=== PATIENT | male | born 1955 | race Caucasian/White ===

== ENCOUNTER 2016-11-08 21:09 | Emergency (ER) | payer BC ==
[2016-11-08] MEDS ORDERED: HYDROcodone/ACETAMIN 5-325 MG* 1 TAB PO SCH (23:45)
[2016-11-09 00:19] VITALS: BP 156/89
--- NOTE | 2016-11-09 07:38 | RAD ---
INDICATION: Injury right humerus COMPARISON: None TECHNIQUE: AP, lateral, and oblique views were obtained. FINDINGS: The bony structures, joint spaces, and soft tissues are normal for age. IMPRESSION: NO ACUTE BONY FINDINGS
--- NOTE | 2016-11-09 07:39 | RAD ---
INDICATION: Left hand injury COMPARISON: None TECHNIQUE: AP, lateral, and oblique views were obtained. FINDINGS: There is no acute fracture. There is a healed fracture the proximal phalanx of the third digit. The articular relationships and soft tissues are normal for age. IMPRESSION: NO ACUTE FRACTURE.
--- NOTE | 2016-11-09 07:45 | RAD ---
INDICATION: Right shoulder injury COMPARISON: None TECHNIQUE: Routine frontal and Y views were obtained. FINDINGS: There are no acute bony findings. 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 The glenohumeral joint is intact. The soft tissues are normal. IMPRESSION: NO ACUTE FINDINGS.
--- NOTE | 2016-11-09 13:24 | ED ---
Ct Ceja Erika, scribed for Dimitri Fisher MD on 11/08/16 at 2234 . Adult Trauma - HPI Summary HPI Summary: Patient is a 61-year-old male presenting to the ED with a CC of constant, sudden -onset right shoulder pain s/p fall yesterday. 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 Patient reports pain to both of these locations. Shoulder pain is aggravated by moving the arm. - History of Current Complaint Chief Complaint: EDExtremityUpper Stated Complaint: FALL/ RT SHOULDER /SWOLLEN LT RING FINGER Time Seen by Provider: 11/08/16 22:23 Hx Obtained From: Patient Mechanism of Injury: Fall Onset/Duration: Started Days Ago, Traumatic, Still Present Current Severity: Moderate Pain Intensity: 8 Pain Scale Used: 0-10 Numeric Location: Extremities - R shoulder, L 4th finger Aggravating Factor(s): Movement - Allergy/Home Medications Allergies/Adverse Reactions: Allergies Allergy/AdvReac Type Severity Reaction Status Date / Time No Known Allergies Allergy Verified 11/08/16 21:19 PMH/Surg Hx/FS Hx/Imm Hx Endocrine/Hematology History: Reports: Hx Diabetes Cardiovascular History: Reports: Hx Hypertension Infectious Disease History: No Infectious Disease History: Denies: Traveled Outside the [place] in Last 30 Days - Family History Known Family History: Positive: Cardiac Disease, Hypertension, Respiratory Disease - COPD - Social History Occupation: Employed Full-time Lives: With Family Alcohol Use: None Hx Substance Use: No Substance Use Type: Reports: None Hx Tobacco Use: Yes - chewing tobacco Smoking Status (MU): Never Smoked Tobacco Do You Chew or Dip Tobacco: Yes Review of Systems Negative: Fever Positive: Arthralgia - R shoulder, L 4th finger All Other Systems Reviewed And Are Negative: Yes Physical Exam Triage Information Reviewed: Yes Vital Signs On Initial Exam: Initial Vitals Temp Pulse Resp BP Pulse Ox 98.2 F 87 15 140/77 97 11/08/16 21:13 11/08/16 21:13 11/08/16 21:13 11/08/16 21:13 11/08/16 21:13 Completion Of Physical Exam Limited Due To: Dementia Appearance: Positive: Well-Appearing, No Pain Distress Skin: Positive: Warm, Skin Color Reflects Adequate Perfusion, Dry Head/Face: Positive: Normal Head/Face Inspection Eyes: Positive: Normal ENT: Positive: Normal ENT inspection Neck: Positive: Supple, Nontender Respiratory/Lung Sounds: Positive: Clear to Auscultation, Breath Sounds Present Cardiovascular: Positive: RRR Abdomen Description: Positive: Nontender, Soft Bowel Sounds: Positive: Present Musculoskeletal: Positive: Other - Deformed right upper arm and shoulder. NV and motor intact Neurological: Positive: Normal Psychiatric: Positive: Affect/Mood Appropriate Diagnostics - Vital Signs Vital Signs Temp Pulse Resp BP Pulse Ox 11/08/16 21:15 98.2 F 87 15 140/77 97 11/08/16 21:13 98.2 F 87 15 140/77 97 - Laboratory Lab Statement: Any lab studies that have been ordered have been reviewed, and results considered in the medical decision making process. - Radiology L Hand XR Xray Interpretation: No Acute Changes Radiology Interpretation Completed By: ED Physician R Humerus XR Xray Interpretation: No Acute Changes Radiology Interpretation Completed By: ED Physician R Shoulder XR Radiology Interpretation Completed By: Radiologist - See [facility], pending at this time Adult Trauma Course/Dx - Course Course Of Treatment: Mr. Scott has a great deal of pain in his right shoulder to any ROM without an radiographic findings. I will place him in an immobilizer and encourage F/U. I warned him not to use the immobilizer more than a week without F/U. - Diagnoses Provider Diagnoses: Shoulder injury Discharge - Discharge Plan Condition: Stable Disposition: HOME Prescriptions: HYDROcodone/ACETAMIN 5-325 MG* [[place] 5-325 TAB*] 1 tab PO Q6H PRN #20 tab MDD 4 PRN Reason: Pain Patient Education Materials: Shoulder Sprain (ED) Referrals: Domitila Chavez MD [Primary Care Provider] - Additional Instructions: USE SHOULDER IMMOBILIZER. FOLLOW UP WITH YOUR PRIMARY CARE PHYSICIAN WITHIN A WEEK. DO NOT USE THE IMMOBILIZER FOR MORE THAN A WEEK. TAKE MEDICATION DIRECTED. The documentation as recorded by the Ct medrano Erika accurately reflects the service I personally performed and the decisions made by me, Dimitri Fisher MD.
== END 2016-11-09 00:18 | disposition home or self-care (01) ==
LOC: ED 21:09
DX: S49.91XA Unspecified injury of right shoulder and upper arm, initial encounter (principal); W19.XXXA Unspecified fall, initial encounter; Y93.9 Activity, unspecified; Y92.9 Unspecified place or not applicable
CPT/HCPCS: 99282

== ENCOUNTER 2017-03-21 19:21 | Emergency (ER) | payer BC ==
[2017-03-21 19:29] VITALS: BP 137/85
--- NOTE | 2017-03-21 20:48 | ED ---
Skin Complaint - HPI Summary HPI Summary: Patient presents to the with vesciular lesions under the right breast, right side body, right side of upper back which are following a linear pattern. He has had chicken pox as a child. He endorses pain over the lesions and has been using Vaseline for relief. He first noticed the lesions approximately 3-4 days ago. They have not gotten better or worse, but that pain has increased. He states he has been under increased stress lately and PMHx includes diabetes and HTN. Denies other complaints at this time. No lesions are noted in the ear or around the eyes. Denies numbness or tingling. - History of Current Complaint Chief Complaint: UCSkin Time Seen by Provider: 03/21/17 19:35 Stated Complaint: BLISTERS AND RASH ON TORSO Hx Obtained From: Patient Onset/Duration: Started Days Ago - 4 Timing: Constant Onset Severity: Moderate Current Severity: Moderate Pain Intensity: 0 Pain Scale Used: 0-10 Numeric Skin Location: Chest - and back Character: Swelling, Redness, Raised, Painful Aggravating Symptom(s): Nothing Alleviating Symptom(s): Nothing Associated Signs & Symptoms: Negative Related History: Possible Reaction to: Environmental Exposure - Allergy/Home Medications Allergies/Adverse Reactions: Allergies Allergy/AdvReac Type Severity Reaction Status Date / Time No Known Allergies Allergy Verified 03/21/17 19:30 Home Medications: Home Medications Atorvastatin* [Lipitor*] 40 mg PO 1700 03/21/17 [History Confirmed 03/21/17] Gabapentin CAP(*) [Neurontin 300 CAP(*)] 300 mg PO DAILY 03/21/17 [History Confirmed 03/21/17] Ibuprofen TAB* [Motrin TAB* 800 MG] 800 mg PO Q8H PRN 03/21/17 [History Confirmed 03/21/17] Losartan Potassium [Cozaar] 50 mg PO DAILY 03/21/17 [History Confirmed 03/21/17] Metformin HCl [Fortamet] 1,000 mg PO BID 03/21/17 [History Confirmed 03/21/17] Phentermine HCl 37.5 mg PO DAILY 03/21/17 [History Confirmed 03/21/17] Sitagliptin Phosphate [Januvia] 100 mg PO DAILY 03/21/17 [History Confirmed ] glipiZIDE TAB.XL* [Glucotrol XL*] 10 mg PO DAILY 03/21/17 [History Confirmed ] PMH/Surg Hx/FS Hx/Imm Hx Previously Healthy: No - see below Endocrine/Hematology History: Reports: Hx Diabetes Cardiovascular History: Reports: Hx Hypertension - Surgical History Surgery Procedure, Year, and Place: HERNIA REPAIR - Immunization History Hx Pertussis Vaccination: No Immunizations Up to Date: Unable to Obtain/Confirm Infectious Disease History: No Infectious Disease History: Denies: Traveled Outside the [place] in Last 30 Days - Family History Known Family History: Positive: Cardiac Disease, Hypertension, Respiratory Disease - COPD - Social History Occupation: Employed Full-time Lives: With Family Alcohol Use: None Hx Substance Use: No Substance Use Type: Reports: None Hx Tobacco Use: Yes - chewing tobacco Smoking Status (MU): Never Smoked Tobacco Type: Smokeless Tobacco Review of Systems Constitutional: Negative Eyes: Negative Cardiovascular: Negative Respiratory: Negative Positive: no symptoms reported, see HPI Positive: Arthralgia, Myalgia - pain in right side over lesions Positive: Other - vesicular lesions with minimal weeping Neurological: Negative Psychological: Normal All Other Systems Reviewed And Are Negative: Yes Physical Exam Triage Information Reviewed: Yes Vital Signs On Initial Exam: Initial Vitals Temp Pulse Resp BP Pulse Ox 98.9 F 87 18 137/85 100 03/21/17 19:26 03/21/17 19:26 03/21/17 19:26 03/21/17 19:26 03/21/17 19:26 Vital Signs Reviewed: Yes Appearance: Positive: Well-Appearing, Well-Nourished Skin: Positive: Warm, Weeping Skin/Lesions - vesicles Head/Face: Positive: Normal Head/Face Inspection, Temporal Artery Tenderness Eyes: Positive: Normal, EOMI, THAD, Conjunctiva Clear Neck: Positive: Supple, No Lymphadenopathy Respiratory/Lung Sounds: Positive: Clear to Auscultation, Breath Sounds Present Cardiovascular: Positive: Normal Musculoskeletal: Positive: Strength/ROM Intact Neurological: Positive: Other - nerve pain over vesicular lesions Psychiatric: Positive: Normal AVPU Assessment: Alert Diagnostics - Vital Signs Vital Signs Temp Pulse Resp BP Pulse Ox 03/21/17 19:26 98.9 F 87 18 137/85 100 - Laboratory Lab Statement: Any lab studies that have been ordered have been reviewed, and results considered in the medical decision making process. Course/Dx - Course Course Of Treatment: Patient evaluated for acute vesicular rash. Pain is located over the rash, but denies elsewhere. Chickenpox as a child and currently immunocompromised with increased stress levels and workload, diabetes and HTN. The lesions are vesicles which are weeping and not crusted over. They follow a dermatome pattern and are painful to touch. Valcyclovir 1g TID ordered for management. Patient currently taking Gabapentin for neuropathy. Will defer to PCP for further pain management or increase dose of gabapentin if nerve pain worsens. Patient is OK with discharge and return precautions and managment are given. - Differential Diagnoses - Skin Complaint Differential Diagnoses: Poison [place], Poison [place], Varicella Zoster - Diagnoses Provider Diagnoses: Varicella zoster Discharge - Discharge Plan Condition: Stable Disposition: HOME Prescriptions: ValACYclovir (*) [Valtrex 1 GM(*)] 1 gm PO TID #21 tab MDD 3 Patient Education Materials: Shingles (ED) Referrals: Domitila Chavez MD [Primary Care Provider] - Additional Instructions: PREVENTING TRANSMISSION TO OTHERS Patients with herpes zoster can transmit varicella zoster virus (VZV) to individuals who have not had varicella and have not received the varicella vaccine. VZV is transmitted from person to person by direct contact or by aerosolization of virus from skin lesions. In general, VZV is much less transmissible from a person presenting with herpes zoster than from a person presenting with varicella. Patients with localized zoster are not infectious before vesicles appear and are no longer infectious when the lesions have re-epithelized. For those with active lesions, there are no specific precautions within the community setting. However, patients should be counseled about the risk of viral transmission to others. In addition, until the rash has crusted, patients should be advised to: Keep the rash covered, if feasible, and to wash their hands often to prevent the spread of virus to others. Avoid contact with women who have never had chickenpox or the varicella vaccine, premature or low weight infants, and immunocompromised individuals Images - Images Full Body (No Head): 1 - vesicular lesions with minimal weeping 2 - vesicular lesions following dermatome pattern
== END 2017-03-21 20:00 | disposition home or self-care (01) ==
LOC: UCEAST 19:21
DX: B02.9 Zoster without complications (principal); E11.9 Type 2 diabetes mellitus without complications; Z79.84 Long term (current) use of oral hypoglycemic drugs; I10 Essential (primary) hypertension; F17.220 Nicotine dependence, chewing tobacco, uncomplicated
CPT/HCPCS: 99212; G0463

== ENCOUNTER 2017-12-18 08:46 | Emergency (ER) | payer BC ==
[2017-12-18 09:03] VITALS: BP 140/83
[2017-12-18] MEDS ORDERED: Fluorescein Sod TOPICAL 0.6* 0.6 MG TEST OPHTHALMIC ONE (09:27)
[2017-12-18] MEDS ORDERED: Tetracaine 0.5% OPTH.SOL 4 ML* 1 DROP BTL RIGHT EYE ONE (09:28)
--- NOTE | 2017-12-18 09:49 | UC ---
Yashira Ceja Emily, scribed for Jovan Mirza MD on 12/18/17 at 0936 . Eye Complaint HPI - HPI Summary HPI Summary: In Room: This patient is a 62 year old M presenting to convenient care with a chief complaint of foreign body in R eye that he noticed at 1100 yesterday. Pt reports that he snapped the axle on his trailer, and had to repair it. Pt reports he believes something may have gone into his eye at this point. The patient rates the pain 6/10 in severity. Symptoms aggravated by nothing. Symptoms alleviated by nothing. Patient denies cough, CP, and SOB. MD: Vital signs stable. Afebrile. 6/10 R eye discomfort. Visit history noncontributory. Pt has HTN, diabetes, tobacco use and has had shingles. Nurses: Pt complains of fb in right eye. Pt states unsure of what is in right eye. Pt states pain began 12/17/17. - History of Current Complaint Chief Complaint: UCEye Stated Complaint: EYE COMPLAINT Time Seen by Provider: 12/18/17 09:11 Hx Obtained From: Patient Onset/Duration: Sudden Onset, Lasting Hours, Still Present Timing: Constant Severity Initially: Moderate Severity Currently: Moderate Pain Intensity: 6 Pain Scale Used: 0-10 Numeric Character: Foreign Body Sensation Aggravating Factor(s): Nothing Alleviating Factor(s): Nothing - Allergies/Home Medications Allergies/Adverse Reactions: Allergies Allergy/AdvReac Type Severity Reaction Status Date / Time No Known Allergies Allergy Verified 12/18/17 08:51 Home Medications: Home Medications Tetrahydroz/Peg 400/Hyprom/Gly [Visine Max Redness Relief Drop] 2 drop RIGHT EYE Q1HR PRN 12/18/17 [History Confirmed 12/18/17] PMH/Surg Hx/FS Hx/Imm Hx Previously Healthy: No Endocrine History: Diabetes Cardiovascular History: Hypertension - Surgical History Surgical History: Yes Surgery Procedure, Year, and Place: HERNIA REPAIR. Right shoulder surgery - Family History Known Family History: Positive: Cardiac Disease, Hypertension, Respiratory Disease - COPD - Social History Occupation: Retired Lives: With Family Alcohol Use: None Substance Use Type: None Smoking Status (MU): Never Smoked Tobacco Type: Smokeless Tobacco Amount Used/How Often: 2 can weekly Review of Systems Eyes: Other - Positive foreign body sensation in R eye Respiratory: Other - Negative cough and SOB Cardiovascular: Other - Negative CP All Other Systems Reviewed And Are Negative: Yes Physical Exam - Summary Physical Exam Summary: Appearance: The patient is well-appearing, is in no pain distress, and is well- nourished. Eyes: PUPILS EQUAL AND REACTIVE TO LIGHT AND ACCOMODATION. NO VISIBLE INJURY. RIGHT SCLERA SLIGHTLY INJECTED. EXAMINATION OF THE EYE SHOWS A PINPOINT FOREIGN BODY THAT IS PROBABLY RUST AT 7 OCLOCK IN THE RIGHT EYE. ENT: The hearing is grossly normal, the pharynx is normal, and the TMs are normal. There is no muffled or hoarse voice. Neck: The neck is supple and there is no lymphadenopathy. Respiratory: The chest is nontender. The lungs are clear, there are normal breath sounds, and there is no respiratory distress. Cardiovascular: Heart is regular rate and rhythm. There is no murmur. Abdomen: The abdomen is soft and nontender. There is no organomegaly. Bowel sounds: present Musculoskeletal: Strength is intact. The patient moves all extremities. Neurological: The patient is alert. Psychological: The patient displays age appropriate behavior Skin: Negative for rashes. Triage Information Reviewed: Yes Vital Signs: Initial Vital Signs Temp 98.1 F 12/18/17 08:54 Pulse 81 12/18/17 08:54 Resp 16 12/18/17 08:54 BP 140/83 12/18/17 08:54 Pulse Ox 98 12/18/17 08:54 Vital Signs Reviewed: Yes Eye Complaint Course/Dx - Course Course Of Treatment: Examination of the eye shows a pinpoint foreign body that is probably rust at 7 oclock in the right eye. After fluorescein and tetracaine , attempt to remove it was made with a moist swab. Since this occurred yesterday , the foreign body appears to be embedded. He will be seen and evaluated by Dr. Talavera. Elevated BP but has current hypertension diagnosis and treatment. This should be rechecked a few times in the next month. Medications have been included in the original chart and reviewed. - Differential Dx/Diagnosis Provider Diagnoses: Corneal foreign body, 1 day old. Discharge - Sign-Out/Discharge Documenting (check all that apply): Discharge/Admit/Transfer - Discharge Plan Condition: Stable Disposition: HOME Patient Education Materials: Eye Foreign Body (ED) Referrals: Domitila Chavez MD [Primary Care Provider] - Additional Instructions: SEEK CARE AT THE EMERGENCY DEPARTMENT IF SYMPTOMS WORSEN OR IF NEW SYMPTOMS DEVELOP. FOLLOW UP WITH YOUR PRIMARY CARE PHYSICIAN. Your blood pressure reading today was 140/83, indicating HYPERTENSION. Follow- up with your primary care provider within 4 weeks for blood pressure readings and further evaluation. WE DISCUSSED: 1. You have a foreign body, probably rust, at 7 o'clock in the right eye. 2. Go to Dr. Talavera's office to have this removed. They are expecting you. - Billing Disposition and Condition Condition: STABLE Disposition: HOME The documentation as recorded by the Yashira medrano Emily accurately reflects the service I personally performed and the decisions made by me, Jovan iMrza MD.
== END 2017-12-18 09:50 | disposition home or self-care (01) ==
LOC: UCEAST 08:46
DX: T15.01XA Foreign body in cornea, right eye, initial encounter (principal); I10 Essential (primary) hypertension; E11.9 Type 2 diabetes mellitus without complications; B02.9 Zoster without complications; Z72.0 Tobacco use; X58.XXXA Exposure to other specified factors, initial encounter; Y93.89 Activity, other specified; Y92.9 Unspecified place or not applicable
CPT/HCPCS: 99211; A9270-GY; G0463

== ENCOUNTER 2018-10-22 18:27 | Observation (INO) | payer BC ==
[2018-10-22] MEDS ORDERED: NS 0.9% 1000 ML** 1,000 ML IV ONE (19:12)
--- NOTE | 2018-10-22 19:22 | ED ---
Neurological HPI - HPI Summary HPI Summary: Pt is a 63 y/o male who presents to the ED c/o numbness. At 18:00 the entire right side of his body became painful, fatigued, and numb. He then stumbled over into a wall due to ataxia. As per , his face became very reddened and he was not answering questions, rather just staring straight ahead. The entire episode lasted for 1 hour, and states pt was upset and crying. The pain is rated a 5/10 in severity. He also c/o paresthesia of his fingers and dehydration , but denies any slurred speech or near-syncope. Upon arrival to the ED he needed assistance getting out of his car. He is a diabetic and his last BG reading was 253. Pt denies any alcohol or drug use. PMHx HTN. - History of Current Complaint Chief Complaint: EDWeakness Stated Complaint: RIGHT SIDED PAIN PER NURSE Time Seen by Provider: 10/22/18 18:31 Hx Obtained From: Patient, Family/[employer] Membership Sales Agent - Onset/Duration: Sudden Onset, Started hours ago - 18:00 tonight, Resolved Timing: Intermittent Episodes Lasting: - 1 hour Neurological Deficit Location: RUE, RLE Pain Intensity: 5 Pain Scale Used: 0-10 Numeric Character: Numbness/Tingling, Lethargy Aggravating: Nothing Alleviating: Spontanious Resolution - Allergy/Home Medications Allergies/Adverse Reactions: Allergies Allergy/AdvReac Type Severity Reaction Status Date / Time No Known Allergies Allergy Verified 12/18/17 08:51 PMH/Surg Hx/FS Hx/Imm Hx Endocrine/Hematology History: Reports: Hx Diabetes Cardiovascular History: Reports: Hx Hypertension GI History: Reports: Other GI Disorders - hernia - Surgical History Surgery Procedure, Year, and Place: HERNIA REPAIR. Right shoulder surgery Infectious Disease History: No Infectious Disease History: Reports: Hx Shingles Denies: Traveled Outside the [place] in Last 30 Days - Family History Known Family History: Positive: Cardiac Disease, Hypertension, Respiratory Disease - COPD - Social History Alcohol Use: None Hx Substance Use: No Substance Use Type: Reports: None Hx Tobacco Use: Yes - chewing tobacco Smoking Status (MU): Current Some Day Smoker Type: Smokeless Tobacco Amount Used/How Often: 2 can weekly Review of Systems Positive: Fatigue, Other - dehydration Positive: Myalgia - right side of body Positive: Other - face reddened - resolved Neurological: Other - ataxia Positive: Paresthesia - fingers, Numbness - right side of body. Negative: Syncope - near, Slurred Speech All Other Systems Reviewed And Are Negative: Yes Physical Exam - Summary Physical Exam Summary: Appearance: well appearing, no pain distress Skin: warm, dry, reflects adequate perfusion Head/face: normal Eyes: EOMI, THAD ENT: mucous membranes moist Neck: supple, non-tender Respiratory: CTA, breath sounds present Cardiovascular: RRR, pulses symmetrical Abdomen: non-tender, soft Bowel Sounds: present Musculoskeletal: normal, strength/ROM intact Neuro: normal, sensory motor intact, A&Ox3, stands and walks normally Psych: flat affect Triage Information Reviewed: Yes Vital Signs On Initial Exam: Initial Vitals Temp Pulse Resp BP Pulse Ox 99.2 F 78 19 124/78 97 10/22/18 18:34 10/22/18 18:34 10/22/18 18:34 10/22/18 18:34 10/22/18 18:34 Vital Signs Reviewed: Yes - Stefanie Coma Scale Best Eye Response: 4 - Spontaneous Best Motor Response: 6 - Obeys Commands Best Verbal Response: 5 - Oriented Coma Scale Total: 15 Diagnostics - Vital Signs Vital Signs Temp Pulse Resp BP Pulse Ox 10/22/18 18:34 99.2 F 78 19 124/78 97 - Laboratory Lab Results: Lab Results 10/22/18 Range/Units 18:33 POC Glucose (mg/dL) 253 H (70-100) mg/dL Result Diagrams: 10/22/18 19:15 10/22/18 19:15 Lab Statement: Any lab studies that have been ordered have been reviewed, and results considered in the medical decision making process. - Radiology CXR Radiology Interpretation Completed By: ED Physician Summary of Radiographic Findings: No acute findings. Pending official radiology report. - CT Brain CT CT Interpretation Completed By: Radiologist Summary of CT Findings: 1. No acute intracranial hemorrhage or acute territorial type infarct. 2. There are scattered foci of hypodensity, likely representing small vessel ischemic disease in a patient this age. 3. Mild atrophy. 4. If further evaluation is clinically indicated, an MRI of the brain is. recommended. ED physician reviewed radiology report. - EKG 19:20 Cardiac Rate: NL - 80 bpm EKG Rhythm: Sinus Rhythm ST Segment: Normal Summary of EKG Findings: Nl axis, nl intervals NIH Scale - NIH Scale Level of Consciousness: Alert/Keenly Responsive Ask Patient the Month and His/Her Age: Both Correct Ask Pt to Open/Close Eyes and Switchboard Operator Receptionist/Release Non-Paretic Hand: Both Correctly Best Gaze (Only Horizontal Eye Movement): Normal Visual Field Testing: No Visual Loss Facial Paresis-Pt to Smile & Close Eyes or Grimace Symmetry: Normal/Symmetrical Motor Function - Right Arm: No Drift-Holds 10 Seconds Motor Function - Left Arm: No Drift-Holds 10 Seconds Motor Function - Right Leg: No Drift-Holds 10 Seconds Motor Function - Left Leg: No Drift-Holds 10 Seconds Limb Ataxia-Must be out of Proportion to Weakness Present: Absent Sensory (Use Pinprick to Test Arms/Legs/Trunk/Face): Normal Best Language (Describe Picture, Name Items): No Aphasia Dysarthria (Read Several Words): Normal Extinction and Inattention: No Abnormality Total Score: 0 Course/Dx - Course Course Of Treatment: Nurse's notes reviewed. Patient presents with abrupt onset of neurologic symptoms affecting the right side of his body with some ataxia. His NIH on exam is 0 however he required assistance in getting out of the car. His symptoms lasted maybe one hour. Teleneurology consultation was made with stroke neurologist at [facility]. He agreed at likely TIA and agreed that the patient was not a candidate for TPA. The patient was given IV fluids and full dose aspirin. He had no recurrence of his neurologic symptoms. He does have risk factors for cardiovascular disease including diabetes and hypertension. He will be admitted to the hospitalist service for further evaluation and rule out. - Differential Dx Differential Diagnoses Neuro: Positive: Benign Paroxysmal Positional Vertigo, Cerebrovascular Accident, Hypoglycemia, Hypothermia, Intracranial Bleed, Medication Reaction, Metabolic Abnormality, Transient Ischemic Attack, Vasovagal Reaction, Other - Mental health/conversion disorder - Diagnoses Provider Diagnoses: TIA (transient ischemic attack) - Physician Notifications Discussed Care Of Patient With: Francisco Camilo Time Discussed With Above Provider: 20:30 Instructed by Provider To: Other - Dr. Camilo from [facility] neurology is on for a teleconsult. He recommends admission to rule out TIA. At 21:05 Dr. Key accepts for admission. - Critical Care Time Critical Care Time: 30-74 min - Critical care time is exclusive of separately billable procedures Discharge - Sign-Out/Discharge Documenting (check all that apply): Patient Departure - Admit Patient Received Moderate/Deep Sedation with Procedure: No - Discharge Plan Condition: Stable Disposition: ADMITTED TO [facility] Referrals: Charlie Kwan MD [Primary Care Provider] - - Billing Disposition and Condition Condition: STABLE Disposition: Admitted to [facility] - Attestation Statements Document Initiated by Scribe: Yes Documenting Scribe: Lidia Palomares Provider For Whom Nithya is Documenting (Include Credential): Brennen Vick MD Scribe Attestation: Lidia Ceja, scribed for Brennen Vick MD on 10/22/18 at 2131. Scribe Documentation Reviewed: Yes Provider Attestation: The documentation as recorded by the Lidia medrano accurately reflects the service I personally performed and the decisions made by Brennen murguia MD Status of Scribe Document: Viewed
[2018-10-22 19:32] LABS: ABS Basophils 0.1 10^3/ul (0-0.2); ABS Eosinophils 0.3 10^3/ul (0-0.6); ABS Lymphocytes 2.7 10^3/ul (1.0-4.8); ABS Monocytes 1.3 10^3/ul (0-0.8); ABS Neutrophils 6.4 10^3/ul (1.5-7.7); ABS Nucleated RBC 0 10^3/ul; Hematocrit 45 % (36-46); Hemoglobin 15.1 g/dL (14.0-18.0); Lymphocyte % 25.1 %; Mean Corpuscular HGB Conc 34 g/dL (31-36); Mean Corpuscular Hemoglobin 29 pg (27-31); Mean Corpuscular Volume 87 fL (80-94); Mean Platelet Volume 9.1 fL (7.4-10.4); Nucleated Red Blood Cells % 0.1; Platelet Count 213 10^3/uL (150-450); Red Blood Count 5.16 10^6 /uL (4.18-5.48); Red Cell Distribution Width 14 % (10.5-15); White Blood Count 10.8 10^3/uL (3.5-10.8)
[2018-10-22 19:41] LABS: INR 0.84 (0.77-1.02)
[2018-10-22 19:42] LABS: Activated Partial Thrombo Time 31.4 seconds (26.0-36.3)
[2018-10-22 19:43] LABS: Albumin 4.2 g/dL (3.2-5.2); Albumin/Globulin Ratio 1.3 (1-3); BUN/Creatinine Ratio 17.3 (8-20); Calcium 9.3 mg/dL (8.6-10.3); EGFR African American 52.7 (>60); EGFR Non-African American 43.5 (>60); Globulin 3.3 g/dL (2-4); HDL Cholesterol 31.7 mg/dL; Total Bilirubin 0.4 mg/dL (0.2-1.0); Total Protein 7.5 g/dL (6.4-8.9)
[2018-10-22 19:45] LABS: Troponin I 0.01 ng/mL (<0.04)
[2018-10-22 20:04] LABS: Potassium 4.2 mmol/L (3.5-5.0)
[2018-10-22] MEDS ORDERED: Aspirin EC TAB* 81 MG TAB.EC ONE (20:45)
[2018-10-22] MEDS ORDERED: Aspirin 81 mg CHEW TAB* 81 MG TAB.CHEW PO ONE (20:45)
[2018-10-22 21:41] LABS: Urine Appearance Clear; Urine Bilirubin Negative (Negative); Urine Blood Negative (Negative); Urine Color Yellow; Urine Glucose 3+(>=500 mg/dL) (Negative); Urine Ketones Negative (Negative); Urine Nitrite Negative (Negative); Urine Protein Negative (Negative); Urine Specific Gravity 1.025 (1.010-1.030); Urine Urobilinogen Negative (Negative)
[2018-10-22] MEDS ORDERED: Dextrose 50% Syringe 50 ML* 25 GM/50 ML SYRINGE IV PUSH PRN (22:34)
[2018-10-22] MEDS ORDERED: Enoxaparin(*) 40 MG/0.4 ML SYR SUBCUT SCH (23:00)
[2018-10-23] MEDS: Insulin LISPRO* 1 UNITS UNIT SUBCUT SCH ×3 (00:02→12:23)
--- NOTE | 2018-10-23 00:26 | ADMNOTE ---
Subjective Date of Service: 10/22/18 Interval History: HISTORY AND PHYSICAL PCP: Aquiles CC: RT side numbness HPI: Patient is 63 year old with diabetes, hypertension, who was driving car yesterday afternoon, had sudden onset of numbness and weakness in whole RT side of body. He was able to stop car. was with him, convinced him to come to ER by car. At ER, he noted ataxia and weakness in RT leg and arm, needed assistance to get out of car to stretcher. In ER neurologic exam normalized. He had tele-stroke consult and aspirin daily was advised. Denies headache. Denies similar episodes in past. Family History: Findings - father of alcoholism, mother of DE, Brother alive with CAD Social History: Findings - , 2 children, raising grandson, retired, no smoking, no alcohol, no drug use Past Medical History: Findings - Type 2 diabetes, hypertension; PSH: RT shoulder repair, umbilical hernia repair Review of Systems - Measurements Intake and Output: Intake and Output Last 24 Hours 10/20/18 10/21/18 10/22/18 10/23/18 06:59 06:59 06:59 06:59 Weight 132.449 kg - Review of Systems Constitutional Symptoms: Negative: Weight Loss, Fatigue, Fever Dermatology: Positive: Normal HEENT: Positive: Normal Eyes: Positive: Normal Negative: Change in Vision, Double Vision Thyroid: Positive: Normal Pulmonary: Positive: Normal Cardiology: Positive: Normal Negative: Chest Pain, Shortness of Breath Gastroenterology: Positive: Normal Negative: Nausea, Vomiting, Diarrhea Genital - Urinary: Positive: Normal Endocrinology: Positive: Diabetes Mellitus Neurology: Positive: Change in Balancing, Change in Walking, Numbness\ Paresthesiae, Unexplained Weakness Negative: Headache, Migraines, Change in Speech, Hx of Stroke\TIA, Hx of Seizures Psychiatry: Positive: Normal Objective Active Medications: Aspirin (Aspirin 81 Mg Chew Tab*) 81 mg PO DAILY WITH MEAL [facility] Atorvastatin Calcium (Lipitor*) 40 mg PO 1700 [facility] Glipizide (Glucotrol Xl*) 10 mg PO DAILY [facility] Losartan Potassium (Cozaar Tab*) 50 mg PO DAILY [facility] Metformin HCl (Glucophage*) 1,000 mg PO BID [facility] Nfm* (Empagliflozin ([Jardiance] 10 Mg)) 10 mg PO DAILY WITH MEAL [facility] Sitagliptin Phosphate (Januvia (Nf)) 100 mg PO DAILY [facility]; Protocol Vital Signs - 8 hr 10/22/18 10/22/18 10/22/18 18:34 18:37 18:38 Temperature 37.3 C Pulse Rate 78 79 81 Respiratory 19 24 28 Rate Blood Pressure 124/78 129/72 (mmHg) O2 Sat by Pulse 97 96 96 Oximetry 10/22/18 10/22/18 10/22/18 22:09 22:39 23:00 Temperature Pulse Rate 72 72 68 Respiratory 25 21 27 Rate Blood Pressure 127/74 120/72 (mmHg) O2 Sat by Pulse 94 96 95 Oximetry 10/22/18 10/22/18 23:10 23:21 Temperature 37.2 C Pulse Rate 75 76 Respiratory 16 16 Rate Blood Pressure 119/71 119/71 (mmHg) O2 Sat by Pulse 95 98 Oximetry Oxygen Devices in Use Now: None Appearance: alert, no distress, obese Eyes: No Scleral Icterus Ears/Nose/Mouth/Throat: NL Teeth, Lips, Gums, Clear Oropharnyx Neck: NL Appearance and Movements; NL JVP Respiratory: Symmetrical Chest Expansion and Respiratory Effort, Clear to Auscultation Cardiovascular: NL Sounds; No Murmurs; No JVD, RRR Abdominal: NL Sounds; No Tenderness; No Distention, No Hepatosplenomegaly Lymphatic: No Cervical Adenopathy Extremities: No Edema Skin: No Rash or Ulcers Neurological: Alert and Oriented x 3, NL Sensation, NL Muscle Strength and Tone Lines/Tubes/Other Access: Clean, Dry and Intact Peripheral IV Nutrition: Taking PO's Result Diagrams: 10/22/18 19:15 10/22/18 19:15 Additional Lab and Data: Laboratory Tests 10/22/18 10/22/18 10/22/18 18:33 19:15 19:15 INR (Anticoag Therapy) 0.84 APTT 31.4 Glucose 241 H POC Glucose (mg/dL) 253 H Lactic Acid Troponin I 0.01 Cholesterol 118 LDL Cholesterol 28 HDL Cholesterol 31.7 Ur Specific [place] Urine Glucose 10/22/18 10/22/18 19:15 21:18 INR (Anticoag Therapy) APTT Glucose POC Glucose (mg/dL) Lactic Acid 1.9 Troponin I Cholesterol LDL Cholesterol HDL Cholesterol Ur Specific [place] 1.025 Urine Glucose 3+(>=500 mg/dl) A Diagnostic Imaging: Head CT: no infarct CXR: negative EKG Data: NSR, normal axis , Qs in III, aVF, possible old IMI Assess/Plan/Problems-Billing Assessment: 63 year old man admitted w/ episode RT arm numbness, ataxia, possible TIA - Patient Problems (1) TIA (transient ischemic attack) Current Visit: Yes Status: Acute Priority: High Code(s): G45.9 - TRANSIENT CEREBRAL ISCHEMIC ATTACK, UNSPECIFIED SNOMED Code(s): 743813162 Comment: -Differential would include cardioembolic TIA, carotid embolism source, seizure, or somatization. -Will be admitted to observation, follow rhythm on telemetry -Will need MRI to assess for small stroke -Will have carotid doppler and echocardiogram to assess for embolic source. -Started on aspirin daily. (2) Type 2 diabetes mellitus Current Visit: Yes Status: Acute Priority: Medium Comment: -Will continue outpatient diabetes regimen and check finger stick glucose at AC and HS. -Supplemental sliding scale humalog will be available. (3) DVT prophylaxis Current Visit: Yes Status: Acute Priority: Low Code(s): [id number] - SNOMED Code(s): 354307878 Comment: -Moderate risk -SC lovenox Status and Disposition: observation
[2018-10-23 07:03] LABS: Troponin I 0.01 ng/mL (<0.04)
[2018-10-23 07:04] LABS: BUN/Creatinine Ratio 17.3 (8-20); Calcium 9.3 mg/dL (8.6-10.3); EGFR African American 62.9 (>60); EGFR Non-African American 51.9 (>60); Potassium 4.1 mmol/L (3.5-5.0)
[2018-10-23] MEDS ORDERED: Aspirin 81 mg CHEW TAB* 81 MG TAB.CHEW PO SCH (08:30)
[2018-10-23] MEDS ORDERED: [UNRECOGNIZED DRUG - OTHER] PO SCH (08:30)
[2018-10-23] MEDS ORDERED: metFORMIN* 1,000 MG TAB PO SCH (09:00)
[2018-10-23] MEDS ORDERED: glipiZIDE TAB.XL* 5 MG PO SCH (09:00)
[2018-10-23] MEDS ORDERED: Losartan TAB* 25 MG PO SCH (09:00)
[2018-10-23] MEDS ORDERED: CMCS:SitaGLIPtin (NF) 100 MG TAB PO SCH (09:00)
[2018-10-23] MEDS ORDERED: Clopidogrel TAB* 300 MG PO ONE (10:06)
--- NOTE | 2018-10-23 11:51 | ECHO ---
Patient: AZALIA SHIN [facility] Rec#: [id number] : 1955 Date: 10/23/2018 Age: 63y Height: 180 cm / 70.9 in Weight: 135 kg / 297.5 lbs Sex: M BSA: 2.49 Room#: [facility] Admit Date#: 10/22/2018 Type: Inpatient Referring: Vernon Key MD Reading: Timothy Monroy MD Operations Lead: Wendy HitchcockBABS CC: Charlie Kwan MD Transthoracic Echocardiogram Indication: TIA BP: 125/72 HR: 69 Rhythm: NSR Findings History: Obesity, HTN, DM. Technical Comments: The study quality is fair. Completed at 1140. Left Ventricle: The left ventricular chamber size is normal. Mild concentric left ventricular hypertrophy is observed. Global left ventricular wall motion and contractility are within normal limits. There is normal left ventricular systolic function. The estimated ejection fraction is 55-60%. Abnormal left ventricular diastolic function is observed. There is an E to A reversal in the mitral valve flow pattern suggestive of diastolic dysfunction. Left Atrium: The left atrial chamber size is normal. Right Ventricle: Moderator Band present. The right ventricle is mildly dilated. The right ventricle wall thickness is mildly increased. The right ventricular global systolic function is normal. Right Atrium: The right atrium is mild to moderately dilated. Interatrial septum appears intact without evidence of shunting. The bubble study is negative. A patent foramen ovale is not demonstrated with color Doppler and agitated contrast. Aortic Valve: The aortic valve is trileaflet. The aortic valve leaflets are mildly thickened. There is a trace of aortic regurgitation. There is no evidence of aortic stenosis. Mitral Valve: The mitral valve leaflets are mildly thickened. There is trace to mild mitral regurgitation. There is no evidence of mitral stenosis. Tricuspid Valve: The tricuspid valve leaflets are normal. There is trace to mild tricuspid regurgitation. The right ventricular systolic pressure is estimated at 27 mmHg. There is no tricuspid stenosis. Pulmonic Valve: The pulmonic valve appears normal. There is a trace pulmonic regurgitation. There is no pulmonic stenosis. Pericardium: There is no significant pericardial effusion. A pericardial fat pad is visualized. Aorta: There is mild dilatation of the ascending aorta. There is no dilatation of the aortic arch. The aortic root is normal in size. Pulmonary Artery: The main pulmonary artery appears normal. Venous: The inferior vena cava is dilated. There is a greater than 50% respiratory change in the inferior vena cava dimension. Contrast: Normal saline was used as contrast for the bubble study. Images on 78 and 79. Intravenous contrast was used to help determine presence of intracardiac shunting. Summary: There was not any prior study for comparison. Conclusions Global left ventricular wall motion and contractility are within normal limits. There is normal left ventricular systolic function. The estimated ejection fraction is 55-60%. Abnormal left ventricular diastolic function is observed. The right ventricular global systolic function is normal. A patent foramen ovale is not demonstrated with color Doppler and agitated contrast. There is a trace of aortic regurgitation. There is trace to mild mitral regurgitation. There is trace to mild tricuspid regurgitation. The right ventricular systolic pressure is estimated at 27 mmHg. There is no significant pericardial effusion. Measurements Name Value Normal Range RVIDd (AP) 2D 3.96 cm (0.9 - 2.6) RVDdMajor (2D) 4.8 cm (2.2 - 4.4) RVAW (2D) 0.6 cm (0.2 - 0.5) RAd ISD 4CH 5.6 cm (3.4 - 4.9) RA (A4C)W 4.9 cm (2.9 - 4.6) IVSd (2D) 1.2 cm (0.6 - 1) LVPWd (2D) 1.1 cm (0.6 - 1) LVIDd (2D) 4.1 cm (3.6 - 5.4) LVIDs (2D) 2.7 cm - LV FS (2D) 33 % (25 - 45) Aortic Annulus 2.3 cm (1.4 - 2.6) Ao root diameter (2D) 3.3 cm (2.1 - 3.5) Ascending Ao 3.5 cm (2.1 - 3.4) Aortic arch 3.1 cm (1.8 - 3.4) LA dimension (AP) 2D 3.8 cm (2.3 - 3.8) LAd ISD 4CH 5.3 cm (2.9 - 5.3) LA ISD 4CH W 4.5 cm (2.5 - 4.5) Name Value Normal Range LA ESV BP (A/L) index 26 ml/m2 - Name Value Normal Range MV E-wave Vmax 0.6 m/sec - MV deceleration time 222 msec - MV A-wave Vmax 0.8 m/sec - MV E:A ratio 0.7 ratio - LV septal e' Vmax 0.07 m/sec - LV lateral e' Vmax 0.1 m/sec - LV E:e' septal ratio 8.6 ratio - LV E:e' lateral ratio 6 ratio - Name Value Normal Range AV Vmax 1.3 m/sec - AV VTI 25 cm - AV peak gradient 7 mmHg - AV mean gradient 3 mmHg - LVOT Vmax 1 m/sec - LVOT VTI 25 cm - LVOT peak gradient 7 mmHg - LVOT mean gradient 3 mmHg - MOHSEN Vmax 1 m/sec - Name Value Normal Range TR Vmax 2.2 m/sec - TR peak gradient 19 mmHg - RAP 8 mmHg - RVSP 27 mmHg - IVC diameter 2.4 cm - Name Value Normal Range PV Vmax 0.9 m/sec - PV peak gradient 3 mmHg -
--- NOTE | 2018-10-23 11:58 | CONS ---
CC: Charlie Kwan MD CONSULTATION REPORT: DATE OF CONSULT: 10/23/18 LOCATION: Currently in room 446, bed 2. PRIMARY CARE PHYSICIAN: Charlie Kwan MD. REASON FOR CONSULT: Acute onset right-sided symptoms, numbness and tingling with risk factors. HISTORY OF PRESENT ILLNESS: Mr. Scott is a 63-year-old gentleman with a history of hypertension, diabetes, possibly hypercholesterolemia, who was in his usual state of health when yesterday at around 5 p.[address]. while driving his grandson home, he developed acute onset of right arm and leg numbness and tingling. He denied any specific weakness on that side. His states that his face turned very red, that he he did not speak for about 10 minutes and then he started to cry afterwards. She denied any rere facial weakness. The symptoms lasted for about an hour. He did come to the ER and in the ER, it was reported that he also noted some weakness and ataxia, although he denied that today in the arm and leg. Apparently during his ER visit, his exam returned to normal. Telestroke consult was done and daily aspirin was advised. He reports being on aspirin prior to this hospitalization. He denies any focal left-sided symptoms. He denies any vision symptoms including double vision or vision loss. Denies any recent illnesses, fevers, chills, palpitations or chest pain, shortness of breath. He has had no falls or head trauma. He states that he feels back to his normal self. He has never had any of these symptoms prior. He states that he is compliant with his medications at home. He notes no problem swallowing. He did note some problems with speech for a few minutes, states that it got better. He states that he had a headache afterwards, generalized in nature, dull and aching, moderate but he has no history of migraine headaches in the past or similar focal neurologic findings of presentation. This morning, he is walking around, feeling better, states that he is back to his baseline. PAST MEDICAL HISTORY: As noted above. PAST SURGICAL HISTORY: Includes surgical repair of his right shoulder and umbilical hernia repair in the distant past. MEDICATIONS AT HOME: Include: 1. Losartan. 2. Hydrochlorothiazide. 3. Lipitor 40. 4. Gabapentin. 5. Ibuprofen 800 mg q.8 hours. 6. Glipizide. 7. Januvia. 8. Phentermine 37.5. 9. Metformin. 10. Aspirin 81 mg a day. 11. Jardiance. ALLERGIES: No known drug allergies. FAMILY HISTORY: Father with alcoholism, mother with the heart attack, brother with coronary artery disease. SOCIAL HISTORY: He is . His is at the bedside. He has 2 children. His grandson is living with him. He is a maguire. He denies any significant tobacco, alcohol, or drug use. REVIEW OF SYSTEMS: Review of systems in 14-organ systems as noted above, otherwise negative. PHYSICAL EXAM: Vital Signs: Temperature of 97.8, blood pressure 111/63 to 125/72 to 119/71. Pulse has been in the 60s to 70s. Respiratory rate 16 to 20s. O2 saturation 95 % to 98% on room air. In general, he is a well-nourished, well- developed, obese gentleman, in no acute distress. He is sitting on the side of his hospital bed. He gets up, walks around. He is very pleasant. is at the bedside. HEENT: He is normocephalic, atraumatic. Sclerae anicteric. Mucous membranes are moist. Oropharynx is clear. Nares are patent. Neck is supple. No thyromegaly. No carotid bruits. No meningismus. Chest: Clear to auscultation bilaterally. Cardiovascular is regular rate and rhythm without murmurs. Abdomen is nontender , nondistended. Extremities: No clubbing, cyanosis, or edema. Skin is warm and dry. He has tattoos scattered. On neurologic exam, he is awake, alert, and oriented x3. His speech is fluent. There is no dysarthria. Repetition is intact. Recall of recent and remote events is intact. Vocabulary is intact. His mood is dysthymic. Affect is mood congruent. Cranial Nerves II through XII: Pupils are equally round and reactive to light and accommodation. Extraocular muscles are intact in all quadrants. Visual pacheco are full throughout. Face is symmetric. Facial sensation is intact to light touch. Oropharynx raises symmetrically. Hearing is intact. Tongue is midline. Sternocleidomastoid and trapezius are 5/5. Motor Exam: He is 5/5 throughout. Good tone and bulk. No drift in the upper and lower extremities. [id number] rapid alternating movements were intact without tremors. No dysdiadochokinesia. Sensation is intact to light touch and pinprick throughout. DTRs are 2+ and symmetric in the upper and lower extremities with equivocal Babinski. Gait is normal base, normal arm swing, steady. Romberg negative. DIAGNOSTIC STUDIES/LAB DATA: Lab work includes CBC with diff is essentially normal. INR of 0.84. PTT of 31.4. Chemistry with a BUN of 28. Creatinine of 1.62 on admission, 1.39 this morning. Glucose 241 to 170 to 123 to 164. Lactic acid 1.9. Triglycerides of 294, cholesterol of 118, LDL 28, HDL 31.7. Troponin negative. Urine 3+ glucose. Studies: He had a brain CT which showed some white matter disease. No acute issues. No infarcts appreciated. Mild atrophy. He had a chest x-ray which showed no evidence of active disease. Telemetry negative. Carotid ultrasound, MRA and MRI of the head are pending. Echocardiogram is pending. ASSESSMENT AND PLAN: Mr. Scott is a 63-year-old gentleman with multiple stroke risk factors including diabetes; hypertension; hypercholesterolemia, on medications, who presented to the hospital with acute onset of right arm and leg numbness and tingling, possibly some weakness. Although he downplays that, his states that he had no facial droop, but his face turned very red. He did not speak for about 10 minutes and then started talking again. He has never had any similar issues in the past. He is on daily aspirin at home. A emy hogan was called as he arrived within an hour and based on his presentation at the time, they recommended aspirin. No need for intervention. Overnight, he has returned to baseline. He has not had any new issues. He feels okay, somewhat concerned about his presentation. PLAN: 1. Will order MRI and MRA of the head, to look for any acute stroke, to look for any evidence of stenosis or other vascular issues. 2. Carotid ultrasound of the neck to look for any stenosis, thrombus or dissection. 3. Echocardiogram. 4. Continue tele to look for any evidence of atrial fibrillation. 5. I will continue aspirin. I have added Plavix loading dose, 300mg and would start 75 mg a day and I would treat with dual antiplatelet therapy for 30 days and then stop the aspirin and continue the Plavix as he may have aspirin resistance. I would consider this is a high-risk TIA given his multiple risk factors. I think dual antiplatelet is appropriate. 6. Continue his statin. His LDL cholesterol is very good. 7. Continue tight blood pressure control. 8. Continue tight glucose control at this point. He is back to his baseline with no focal deficits. No need for any physical therapy at this point. If his studies come back negative today, I think it is okay for him to go home. I told him to return to the ER immediately should he have any new focal symptoms or concerns. I plan to see him back in clinic. You can make a followup with me in 2 to 3 months. I will make further recommendations as necessary. Thank you for the opportunity to participate in the care of this very interesting patient. [id number]/[facility] #: [id number] GROGE
[2018-10-23 12:37] VITALS: BP 116/70
--- NOTE | 2018-10-23 16:09 | DS ---
CC: Dr. Charlie Kwan* DATE OF ADMISSION: 10/22/2018. DATE OF DISCHARGE: 10/23/2018. PROVIDER: Jorge Luis Leija NP. ATTENDING PHYSICIAN: Dr. bAdi* (report dictated by Jorge Luis Leija NP). PRIMARY CARE PHYSICIAN: Dr. Charlie Kwan. CONSULTING NEUROLOGIST: Dr. Ramiro Reyes. DISCHARGE DIAGNOSIS: Right-sided numbness and tingling, suspect possible TIA. SECONDARY DIAGNOSES: 1. Type 2 diabetes. 2. Hypertension. 3. Hyperlipidemia. HISTORY OF PRESENT ILLNESS: The patient presented to the emergency department on 10/23/2018 after he reported he was in his usual state of health when yesterday around 5:00 p.m. he developed an acute onset of right arm and leg numbness, tingling, and possible weakness. He denied any specific weakness of the right side and did not have any facial weakness. Per the 's report, his face did turn red and he did not speak for about ten minutes and then started to cry afterwards. Symptoms were reported to last about an hour. In the emergency department, it was reported that there was noted some weakness and ataxia. Today he denies any weakness, numbness, or tingling in his arms or legs and reports that he feels back to his baseline. Please see Dr. Reyes's full dictated note for full details. Prior to hospitalization, the patient was on aspirin. Per Neurologist, he was loaded with Plavix and the plan will be to continue the patient on dual antiplatelet therapy with aspirin and Plavix for 30 days. The patient is to stop the aspirin and continue the Plavix only as he may have aspirin resistance. Continue statin therapy. IMAGING STUDIES: 1. The patient did undergo a head and neck MRA which showed, impression: "No aneurysm, vascular malformation, occlusion, or stenosis of the visualized intracranial circulation." 2. A brain MRI, impression: "(1) There are multiple foci of elevated T2/FLAIR signal within the periventricular and subcortical white matter. While these findings are nonspecific, they can be seen in association with migraine headache , as the sequela of previous infection or inflammation, and chronic small vessel ischemia. Demyelinating disease is also within the differential, but is considered less likely in the absence of the appropriate clinical presentation. (2) No restricted diffusion to suggest acute infarct." 3. Transthoracic echocardiogram, conclusion: "Global left ventricular wall motion and contractility are within normal limits. There is normal left ventricular systolic function. The estimated ejection fraction is 55 to 60 percent. Abnormal left ventricular diastolic function is observed. The right ventricular global systolic function is normal. A patent foramen ovale is not demonstrated with color Doppler and agitated contrast. There is a trace of aortic regurgitation. There is trace to mild mitral regurgitation. There is trace to mild tricuspid regurgitation. The right ventricular systolic pressure is estimated at 27 mmHg. There is no significant pericardial effusion." LABORATORY DATA: Labs are noted to be within normal limits, except I do note that his creatinine on admission was 1.62, today is down to 1.39. Possible chronic kidney disease. Do not have any recent prior labs. Last creatinine we have recorded is 1.08 in 2013. The patient's triglycerides are 294, cholesterol 118, LDL 28, HDL 31.7. The patient's blood sugars were monitored throughout the hospitalization and are within the range of 160 to 180. He is to resume his home meds on discharge. Recommend follow-up BMP in a week to monitor renal function if this is above the patient's baseline. REVIEW OF SYMPTOMS: A 14 point review of systems was performed. All the pertinent positives and negatives are mentioned in the history of present illness, otherwise are negative. The patient offers no complaints today and reports he feels at his baseline. PHYSICAL EXAMINATION: General: Morbidly obese male, sitting up in a chair, alert and oriented times three, in no acute distress. Pleasant and appropriate. Vital Signs: Temperature 97.8, heart rate 74, respirations 20, O2 sat 99 percent on room air, blood pressure 116/70. HEENT: Head is normocephalic , atraumatic. Pupils equal and reactive to light. Oropharynx is clear. Moist mucous membranes. Cardiac: Si1, S2, regular rate and rhythm. No murmur or gallop appreciated. No lower extremity edema noted. Lungs: Clear to auscultation bilaterally. Good aeration throughout. Abdomen: Very obese, nondistended, soft, nontender. Difficult to auscultate bowel sounds. Extremities: Moves all extremities equally. Strength is 4/4 throughout. Neuro : Alert and oriented times three, no focal deficits noted. DISCHARGE MEDICATIONS: 1. Losartan/HCTZ 50/12.5 mg one tab p.o. daily. 2. Lipitor 40 mg p.o. daily. 3. Gabapentin 300 mg p.o. t.i.d. 4. Glipizide 10 mg p.o. daily. 5. Januvia 100 mg p.o. daily. 6. Phentermine HCL 37.5 mg p.o. daily. 7. Metformin 1,000 mg p.o. b.i.d. 8. Aspirin 81 mg p.o. daily (patient is instructed to take this for one month per Neurology along with Plavix and should be discontinued after one month, continuing Plavix only). 9. Jardiance 10 mg p.o. daily with meals. New medication: Plavix 75 mg p.o. daily. DISCHARGE PLAN: 1. The patient is stable for discharge to home. 2. Follow-up with Neurology, Dr. Reyes, in one month. 3. Follow-up with Dr. Kwan within five to seven days. 4. Follow-up BMP to monitor renal function if this is above the patient's baseline. The patient was instructed to return to the emergency department if he has any worsening or concerning symptoms. TIME SPENT: Approximately 60 minutes were spent on this discharge. JORGE LUIS LEIJA, VERN [id number]/[facility] #: [id number] GORGE
[2018-10-23] MEDS ORDERED: Atorvastatin* 40 MG TAB PO SCH (17:00)
[2018-10-24] MEDS ORDERED: Clopidogrel TAB* 75 MG PO SCH (09:00)
== END 2018-10-23 15:23 | disposition home or self-care (01) ==
LOC: ED 18:27 → MEDTELE 22:31
PROVIDERS: ADMIT Internal Medicine; ATTEND Internal Medicine
DX: R20.0 Anesthesia of skin (principal); E11.9 Type 2 diabetes mellitus without complications; I10 Essential (primary) hypertension; E78.5 Hyperlipidemia, unspecified; Z79.82 Long term (current) use of aspirin; F17.210 Nicotine dependence, cigarettes, uncomplicated; E86.0 Dehydration
CPT/HCPCS: 36415; 70450; 70544; 70551; 71045; 80048; 80053; 80061; 81003; 83605; 84484; 85025; 85610; 85730; 93005; 93306; 93880; 96372; 96374; 99285; A9270-GY; G0378; J1650

== ENCOUNTER 2019-10-11 19:21 | Emergency (ER) | payer BC ==
--- OUTSIDE RECORDS SUMMARY | 2019-10-11 19:28 | XMS REPORT | Summary of Care ---
:1955 Author Organization [facility] Address [address] [place] [address] Care Team Providers Name Role Phone Charlie Kwan Primary Care Provider Reason for Visit Reason Comments Weight Check Patient has lost 4lbs since 05/28/2019. Encounter Details Date Type Department Care Team Description 09/10/2019 Office Visit [facility] [place] Charlie Kaur, BMI 40.0-44.9, adult ([facility]) (Primary Dx); Medicine Diabetes mellitus without complication ([facility]); [address] [place] [address] [place] [address] [phone] Allergies Active Allergy Reactions Severity Noted Date Comments Lisinopril Other 12/09/2013 cough documented as of this encounter (statuses as of 09/10/2019) Medications Medication Sig Dispensed Refills Start Date End Date Status Blood Glucose by Does not apply route. 1. Brand: Any 1 Kit 0 02/02/2011 Active Monitoring Suppl 2. Dx:250.02 (BLOOD GLUCOSE 3. non-Insulin dependent METER) Does not 4. Test Blood Glucose 2 time(s) A DAY apply KitIndications: Diabetes mellitus (HCC) Blood Glucose 1. Brand: per meter type 100 Strip 5 02/02/2011 Active Monitoring Suppl 2. Dx:250.02 (BLOOD GLUCOSE 3. non-Insulin dependent TEST STRIPS 4. Test Blood Glucose 2 time(s) A DAY STR)Indications: Diabetes mellitus (HCC) Lancets Does not by Does not apply route. 1. Brand: per meter type 100 Each 5 02/02/2011 Active apply 2. Dx:250.02 MiscIndications: 3. non-Insulin dependent Diabetes mellitus 4. Test Blood Glucose 2 time(s) A DAY ([facility]) metFORMIN HCL 1000 take 1 tablet 180 Tab 3 10/09/2018 Active MG Oral Tab by mouth twice a day with meals Empagliflozin Take 1 Tab by 90 Tab 5 02/05/2019 Active (JARDIANCE) 25 MG mouth DAILY. Oral Tab JANUVIA 100 MG TAKE 1 TABLET 90 Tab 3 02/11/2019 Active Oral BY MOUTH ONCE TabIndications: DAILY Diabetes mellitus without complication ([facility]) clopidogrel Take 1 Tab by 90 Tab 3 02/11/2019 Active (PLAVIX) 75 MG mouth DAILY. Oral Tab Losartan-Hydrochlo Take 1 Tab by 90 Tab 3 02/11/2019 Active rothiazide 50-12.5 mouth DAILY. MG Oral TabIndications: Benign hypertension gabapentin Take 1 Cap by 180 Cap 3 04/02/2019 Active (NEURONTIN) 300 MG mouth THREE Oral TIMES DAILY. CapIndications: Herpes zoster atorvastatin TAKE 1 TABLET 90 Tab 3 06/17/2019 Active (LIPITOR) 40 MG BY MOUTH ONCE Oral Tab DAILY Phentermine HCl TAKE 1 CAPSULE 30 Cap 3 06/25/2019 Active 37.5 MG Oral BY MOUTH CapIndications: DAILY. MAX BMI 40.0-44.9, DAILY AMOUNT: adult (HCC) 37.5 MG ibuprofen (MOTRIN) TAKE 1 TABLET 90 Tab 3 07/10/2019 Active 800 MG Oral Tab BY MOUTH EVERY 8 HOURS NEEDED FOR HEADACHE amoxicillin Take 1 Tab by 14 Tab 0 07/18/2019 Discontinued (AMOXIL, POLYMOX, mouth TWICE 0 (Error) TRIMOX) 875 MG DAILY. Oral Tab oseltamivir Take 1 Cap by 10 Cap 0 09/02/2019 Discontinued (TAMIFLU) 75 MG mouth DAILY. 0 (Provider Oral Cap Discontinued) documented as of this encounter (statuses as of 09/10/2019) Active Problems Problem Noted Date History of TIA (transient ischemic attack) 05/28/2019 Essential hypertension 02/15/2018 Cortical cataract of both eyes 03/01/2017 Complete tear of right rotator cuff 01/13/2017 Rotator cuff tear arthropathy of right shoulder 11/25/2016 BMI 40.0-44.9, adult 09/20/2012 Overview: This patient's BMI has been calculated and is above average, and BMI management plan is completed. General patient education discussion including: weight loss link to reduction of risk factors for car diac and other diseases Referral to intelligence agent. Controlled type 2 diabetes mellitus without complication, without 10/10/2011 long-term current use of insulin Overview: Eye exam done 05/13, no problems noted Hearing loss, sensory 08/14/2009 documented as of this encounter (statuses as of 09/10/2019) Resolved Problems Problem Noted Date Resolved Date Infected wound 01/30/2019 02/05/2019 Right shoulder pain 11/17/2016 10/30/2018 Tear of right rotator cuff 11/17/2016 02/05/2019 Neck abscess 01/15/2015 10/30/2018 Urine test positive for microalbuminuria 12/09/2013 10/30/2018 Overview: On losartan. Intolerant to lisinopril. Other specified hypothyroidism 08/09/2004 09/10/2019 Depression 08/09/2004 10/30/2018 documented as of this encounter (statuses as of 09/10/2019) Immunizations Name Administration Dates Next Due Influenza (IM) Preservative Free 05/28/2019, 04/24/2018, 05/05/2016, 05/26/2011 Influenza (IM) W/Pres 07/17/2014 PNEUMOCOCCAL POLYSACCHARIDE VACCINE 04/24/2018 Pneumococcal Conjugate(13 Valent) 05/28/2019 TDAP Vaccine 07/17/2014 documented as of this encounter Social History Tobacco Use Types Packs/Day Years Used Date Never Smoker Smokeless Tobacco: Current User Chew Alcohol Use Drinks/Week oz/Week Comments No 0 Standard drinks or equivalent 0.0 Sex Assigned at Date Recorded Not on file Job Start Date Occupation Industry Not on file Not on file Not on file Travel History Travel Start Travel End No recent travel history available. documented as of this encounter Last Filed Vital Signs Vital Sign Reading Time Taken Comments Blood Pressure 124/64 09/10/2019 2:06 PM EST Pulse 100 09/10/2019 2:06 PM EST Temperature - - Respiratory Rate - - Oxygen Saturation 94% 09/10/2019 2:06 PM EST Inhaled Oxygen Concentration - - Weight 123.4 kg (272 lb) 09/10/2019 2:06 PM EST Height 180.3 cm (5' 11") 09/10/2019 2:06 PM EST Body Mass Index 37.94 09/10/2019 2:06 PM EST documented in this encounter Patient Instructions Patient InstructionsCharlie Kwan MD - 09/10/2019 2:00 PM ESTFinger stick once daily premeal <120 or after meal <180 Diabetes mellitus blood test today and in 3 months Please check your blood pressure at home, mall, pharmacy, or grocery store three times per week. Write these numbers down and bring them into your next doctor visit. The goal blood pressure for you is less than : 140/90 Bring in your blood pressure machine Continue phentermine Think about dietitian here for diabetes mellitus Next goal weight 12 weeks 10 lb weight loss documented in this encounter Progress Notes Charlie Kwan MD - 09/10/2019 2:00 PM EST PATIENT: Shant SCOTT Sr. : 1955 DATE OF SERVICE: 09/10/2019 CHIEF COMPLAINT: Chief Complaint Patient presents with Weight Check Patient has lost 4lbs since 05/28/2019. Subjective HISTORY OF PRESENT ILLNESS: Shant SCOTT Sr. is a 63-y.o. male. HPI Follow up to obesity hypertension diabetes mellitus Lab Results Component Value Date GLYCO 8.2 (H) 05/28/2019 GLYCOHEMOGLO 7.6 (A) 10/26/2018 he is not checking finger stick at all and struggles with sugar snacks and beverages He continues to lose weight and feels the phentermine has helped with portion and calorie control hegets no regular exercise Wt Readings from Last 3 Encounters: 09/10/19 272 lb (123.4 kg) 05/28/19 276 lb (125.2 kg) 02/06/19 293 lb 6.4 oz (133.1 kg) no cardiovascular or gastro-intestinal symptoms Patient Active Problem List Diagnosis Hearing loss, sensory Controlled type 2 diabetes mellitus without complication, without long- term current use of insulin ([facility]) BMI 40.0-44.9, adult (HCC) Rotator cuff tear arthropathy of right shoulder Complete tear of right rotator cuff Cortical cataract of both eyes Essential hypertension History of TIA (transient ischemic attack) Family History Problem Relation Age of Onset Diabetes Paternal Aunt Glaucoma No family history Blindness No family history Macular Degeneration No family history Other Eye Problems No family history Current Outpatient Medications Medication Sig atorvastatin (LIPITOR) 40 MG Oral Tab TAKE 1 TABLET BY MOUTH ONCE DAILY Blood Glucose Monitoring Suppl (BLOOD GLUCOSE METER) Does not apply Kit by Does not apply route. 1. Brand: Any 2. Dx:250.02 3. non-Insulin dependent 4. Test Blood Glucose 2 time(s) A DAY Blood Glucose Monitoring Suppl (BLOOD GLUCOSE TEST STRIPS STRP) 1. Brand : per meter type 2. Dx:250.02 3. non-Insulin dependent 4. Test Blood Glucose 2 time(s) A DAY clopidogrel (PLAVIX) 75 MG Oral Tab Take 1 Tab by mouth DAILY. Empagliflozin (JARDIANCE) 25 MG Oral Tab Take 1 Tab by mouth DAILY. gabapentin (NEURONTIN) 300 MG Oral Cap Take 1 Cap by mouth THREE TIMES DAILY. ibuprofen (MOTRIN) 800 MG Oral Tab TAKE 1 TABLET BY MOUTH EVERY 8 HOURS NEEDED FOR HEADACHE JANUVIA 100 MG Oral Tab TAKE 1 TABLET BY MOUTH ONCE DAILY Lancets Does not apply Misc by Does not apply route. 1. Brand: per meter type 2. Dx:250.02 3. non-Insulin dependent 4. Test Blood Glucose 2 time(s) A DAY Losartan-Hydrochlorothiazide 50-12.5 MG Oral Tab Take 1 Tab by mouth DAILY. metFORMIN HCL 1000 MG Oral Tab take 1 tablet by mouth twice a day with meals Phentermine HCl 37.5 MG Oral Cap TAKE 1 CAPSULE BY MOUTH DAILY. MAX DAILY AMOUNT: 37.5 MG No current facility-administered medications for this visit. Allergies Allergen Reactions Lisinopril Other cough Social History Socioeconomic History Marital status: Spouse name: Not on file Number of children: Not on file Years of education: Not on file Highest education level: Not on file Occupational History Not on file Social Needs Financial resource strain: Not on file Food insecurity Worry: Not on file Inability: Not on file Transportation needs Medical: Not on file Non-medical: Not on file Tobacco Use Smoking status: Never Smoker Smokeless tobacco: Current User Types: Chew Substance and Sexual Activity Alcohol use: No Alcohol/week: 0.0 standard drinks Drug use: No Sexual activity: Not on file Lifestyle Physical activity Days per week: Not on file Minutes per session: Not on file Stress: Not on file Relationships Social connections Talks on phone: Not on file Gets together: Not on file Attends mormon service: Not on file Active member of club or organization: Not on file Attends meetings of clubs or organizations: Not on file Relationship status: Not on file Intimate partner violence Fear of current or ex partner: Not on file Emotionally abused: Not on file Physically abused: Not on file Forced sexual activity: Not on file Other Topics Concern Not on file Social History Narrative Not on file ROS no eye symptoms he feels gabapentin helps the neuropathy Heat feeling in his feet Objective PHYSICAL EXAM: VITALS: BP 124/64 | Pulse 100 | Ht 5' 11" (1.803 m) | Wt 272 lb (123.4 kg) | SpO2 94% | BMI 37.94 kg/m Body mass index is 37.94 kg/m. Physical Exam Left foot diabetic exam: Visual exam. Foot appears normal without wounds or signs of infection: yes Sensory exam. Patient can feel the monofilament on the foot: yes Pulse exam. A pulse is palpable at either the foot or ankle: yes Right foot diabetic exam: Visual exam. Foot appears normal without wounds or signs of infection: yes Sensory exam. Patient can feel the monofilament on the foot: yes Pulse exam. A pulse is palpable at either the foot or ankle: yes I spent 25 minutes with the patient, greater than half of this in direct face to face counseling addressing the current condition and the plan of care. ASSESSMENT / IMPRESSION: ICD-9-CM ICD-10-CM 1. BMI 40.0-44.9, adult (HCC) continue phentermine and add in daily 30 minutes walk reduce high carbohydrate snacks V85.41 Z68.41 2. Diabetes mellitus without complication (HCC) not at goal continue current medications hemoglobin A1C today and 3 month 250.00 E11.9 COMPREHENSIVE METABOLIC PANEL GLYCOHEMOGLOBIN A1C 3. Essential hypertension at goal monitor at home and continue current medications 401.9 I10 LIPID PROFILE Patient Instructions Finger stick once daily premeal <120 or after meal <180 Diabetes mellitus blood test today and in 3 months Please check your blood pressure at home, mall, pharmacy, or grocery store three times per week. Write these numbers down and bring them into your next doctor visit. The goal blood pressure for you is less than : 140/90 Bring in your blood pressure machine Continue phentermine Think about dietitian here for diabetes mellitus Next goal weight 12 weeks 10 lb weight loss Charlie Kwan MD 09/10/2019 15:22 documented in this encounter Plan of Treatment Date Type Specialty Care Team Description 12/11/2019 Lab Internal Medicine 12/18/2019 Office Visit Internal Medicine Charlie Kwan MD [address] [place] [address] [phone] 03/12/2020 Ocular Visit Optometry Ashkan [place], OD [address] [facility] [place] [address] [phone] Name Type Priority Associated Diagnoses Date/Time COMPREHENSIVE METABOLIC Lab Routine Diabetes mellitus 09/10/2019 3:17 PM PANEL without complication EST (HCC) GLYCOHEMOGLOBIN A1C Lab Routine Diabetes mellitus 09/10/2019 3:17 PM without complication EST (HCC) LIPID PROFILE Lab Routine Essential hypertension 09/10/2019 3:17 PM EST Health Maintenance Due Date Last Done Comments ZOSTER IMMUNIZATION SERIES 10/20/2007 (1 of 2) FOOT EXAM 02/15/2019 02/15/2018, 02/15/2018, 11/15/2016 HEMOGLOBIN A1C 08/28/2019 05/28/2019, 01/29/2019, 10/26/2018, Additional history exists DEPRESSION SCREENING 01/03/2020 01/02/2019, 01/02/2019 LIPID DISORDER SCREENING 08/30/2020 08/30/2019, 06/17/2019, 05/13/2019, Additional history exists Diabetic Eye Exam 03/07/2021 03/07/2019, 03/07/2019, 03/07/2019, Additional history exists Colonoscopy 04/20/2023 04/20/2018, 04/20/2018, 04/25/2014, Additional history exists DTaP/Tdap/Td Vaccines (2 - 07/17/2024 07/17/2014 Tdap) INFLUENZA VACCINE Completed 05/28/2019, 04/24/2018, 05/05/2016, Additional history exists PNEUMOCOCCAL 0-64 YRS Completed 05/28/2019, 04/24/2018 HEPATITIS A IMMUNIZATION Aged Out No longer eligible SERIES based on patient's age to complete this topic HPV IMMUNIZATION SERIES Aged Out No longer eligible based on patient's age to complete this topic MENINGOCOCCAL VACCINE IMM Aged Out No longer eligible based on patient's age to complete this topic documented as of this encounter Goals Goal Patient Goal Associated Recent Patient-Stated? Author Type Problems Progress Blood Pressure Blood Pressure 124/64 No Mariama, < 140/90 (09/10/2019 ANITA Ramesh 2:06 PM EST) Note: This is an individualized treatment (blood pressure) goal for Shant SCOTT Sr.: Displayed above (on the left) is your goal for blood pressure control. Your most recent blood pressure is also shown above, on the right. You should try to achieve blood pressures that are lower than your goal listed above (on the left). Depression screen Depression 0 (01/02/2019 11:24 AM No Domitila Leslie FNP (PHQ-9) total score < 5 EDT) Note: This is an individualized treatment (depression) goal for Shant Scott Sr.: Displayed above is your goal for a depression screening (PHQ-9) score that would indicate good control of your depression. 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 The patient's last A1C was Lab Results Lab Results Value Date/Time GLYCO 10.1 01/09/2014 0732 GLYCO 9.5 09/06/2013 1000 The patient is:above goal . As your provider, it is important that I advise you regarding: your current medications and help you with any challenges you may face taking your medications as directed (ex. instructions, cost, side effects, and interactions). lifestyle changes:exercise, diet, glucose monitoring and medication compliance your clinical goals and how you can achieve success:weight reduction, exercise plan, diet management and glucose monitoring medication management: will check labs today and adjust if needed. patient education/self-management tools provided: No To successfully manage my Diabetes I will: have lab work every six months if my previous A1c was 7 or less. If my results were greater than 7, I will have lab work every three months. My goal is to control my diabetes by keeping A1c below 7.0 take medications every day as prescribed by my healthcare provider and if unable to take them I will discuss with my provider. exercise/walk 30 minutes 5 day(s) per week. If I experience chest pain, chest tightness, or shortness of breath, I will seek medical attention immediately. check feet daily. If sores or irritation are noticed, will seek medical attention. follow a low carbohydrate and low fat diet. My goal is an LDL (bad cholesterol) number less than 100 when I have my routine lab work. check blood sugar as instructed and will call my healthcare provider if the results are consistently below 70 or above 300. I will monitor for symptoms of low blood sugar (feeling faint, dizzy, lig htheaded, jittery, sweaty, or hungry), if symptoms are noticed, I will eat or drink something (glucose tabs, orange juice, candy) to help raise sugar. record my blood sugar results (including dextrose sticks). [employer] is safe and secure way for you to do this in your medical record online. try to obtain an ideal body weight. My recent weight was Weight: 329 lb ( 149.233 kg). My weight loss goal for my next office visit is lose 5#. to prevent kidney problems common to people with diabetes I will complete a yearly Microalbumin to check for protein in urine. I will talk with my healthcare provider about medications to prevent diabetic renal disease. to prevent diabetic retinopathy I will see an eye doctor yearly. A yearly dilated eye exam helps prevent blindness. if currently smoking, will discuss how to quit smoking with my healthcare provider and work towards quitting. Education Resources: [place] Diabetic Association Site http://diabetes.org Academy of Nutrition & Dietetics Site http://eatright.org National Smoking Cessation Site http://smokefree.gov Glycohemoglobin A1c < 7.0 Diabetes 8.2 (05/28/2019 3:52 No Domitila Leslie FNP PM EDT) Note: This is an individualized treatment (diabetes control, HgbA1C) goal for Shant L Swansbrough Sr.: Displayed above is your progress towards your HgbA1C goal. Your goal is shown above (on the left); your most recent HgbA1C is shown on the right. Note that lower numbers are better. Weight loss vs. 18 mo Lifestyle 30 (09/10/2019 2:06 PM No Domitila Leslie FNP max (lbs) >= 10 EST) Note: This is an individualized lifestyle goal for Shant Scott Sr.: Your body mass index (BMI) is more than 30. You should lose weight. A reasonable starting goal is to lose 10 pounds. Displayed above is how many pounds you have lost thus far towards your 10 pound weight loss goal. Keep a regular sleep schedule Lifestyle No Domitila Leslie FNP Note: This is an individualized lifestyle goal for Shant Scott Sr.: Please maintain a regular sleep schedule. This may help with some symptoms of depression. Keep immunizations current Lifestyle No Domitila Leslie FNP Note: This is an individualized lifestyle goal for Shant Scott Sr.: Please be sure to keep up-to-date on recommended immunizations. For example, this would include a yearly influenza vaccine. Immunization status can be seen by looking at the Health Maintenance sections of your [facility], Plan of Care, and any After Visit Summaries. Take all prescribed medications as Self-management No Domitila Leslie FNP directed Note: This is an individualized self-management goal for Shant Scott Sr.: Please take all prescribed medications as directed. 1. Do not skip doses. If you cannot afford your medications, talk with your doctor. 2. Use a pill reminder system such as a pill box if needed. Your pharmacist can help you with this. 3. Contact your Pharmacy 5 days before your medication runs out. If you cannot take your medications for any reasons, talk with your doctor. 4. Please bring all of your medication bottles and inhalers (or a list of all your medications/inhalers) with you to every visit. Potential barriers to meeting all of your care plan goals will continue to be addressed on an ongoing basis. documented as of this encounter Implants Implanted Type Area Hand Iii Cutter Device Shelf Model / Identifier Expiration Serial / Date Lot Ventralex Patch -Med 6.4x6.4 - [id number] [employer] [id number] / Implanted: Qty: 1 on 08/16/2010 at [facility] / [id number] Biocomposite Corkscrew/Fiber - [id number] Right: [employer] 03/30/2019 [id number] / Implanted: Qty: 1 on 08/15/2017 by Juan Carlos Mulligan MD at [facility] Shoulder / [id number] Swivel Lock [place] 4.75 - [id number] Right: [employer]REX 03/30/2019 AR- [id number] / Implanted: Qty: 2 on 08/15/2017 by Juan Carlos Mulligan MD at [facility] Shoulder / [id number] documented as of this encounter Results Not on filedocumented in this encounter Visit Diagnoses Diagnosis Diabetes mellitus without complication (HCC) Type II or unspecified type diabetes mellitus without mention of complication, not stated as uncontrolled Essential hypertension Unspecified essential hypertension BMI 40.0-44.9, adult (HCC) Body Mass Index 40.0-44.9, adult documented in this encounter Insurance Payer Benefit Plan / Subscriber ID Effective Dates Phone Address Type Group [employer] xxxxxxxxxxxx 2017-Present [employer] Guarantor Name Account Type Relation to Date of Phone Billing Patient Address Jerome SCOTT Personal/Family 1955 [id number] [phone] [place], [place] (Work) [phone] documented as of this encounter
--- OUTSIDE RECORDS SUMMARY | 2019-10-11 19:28 | XMS REPORT | Summary of Care ---
:1955 Author Organization [facility] Address [address] [facility] [place] [address] Care Team Providers Name Role Phone Charlie Kwan Primary Care Provider Reason for Visit Reason Comments Diabetes Follow up. Patient states his blood sugars are all over the place. Last A1C was 8.7 on 09/10/2019. Encounter Details Date Type Department Care Team Description 10/09/2019 Office Visit [facility] Charlie Kwan, Essential hypertension (Primary Dx); Medicine BMI 40.0-44.9, adult ([facility]); [address] Uncontrolled type 2 diabetes mellitus with peripheral neuropathy ([facility]) [place] [address] [place] [address] [phone] Allergies Active Allergy Reactions Severity Noted Date Comments Lisinopril Other 12/09/2013 cough documented as of this encounter (statuses as of 10/09/2019) Medications Medication Sig Dispensed Refills Start Date End Date Status Blood Glucose by Does not apply route. 1. Brand: Any 1 Kit 0 02/02/2011 Active Monitoring Suppl 2. Dx:250.02 (BLOOD GLUCOSE 3. non-Insulin dependent METER) Does not 4. Test Blood Glucose 2 time(s) A DAY apply KitIndications: Diabetes mellitus ([facility]) Blood Glucose 1. Brand: per meter type 100 Strip 5 02/02/2011 Active Monitoring Suppl 2. Dx:250.02 (BLOOD GLUCOSE 3. non-Insulin dependent TEST STRIPS 4. Test Blood Glucose 2 time(s) A DAY STRP)Indications: Diabetes mellitus (HCC) Lancets Does not by Does not apply route. 1. Brand: per meter type 100 Each 5 02/02/2011 Active apply 2. Dx:250.02 MiscIndications: 3. non-Insulin dependent Diabetes mellitus 4. Test Blood Glucose 2 time(s) A DAY (HCC) Empagliflozin Take 1 Tab by 90 Tab 5 02/05/2019 Active (JARDIANCE) 25 MG mouth DAILY. Oral Tab JANUVIA 100 MG TAKE 1 TABLET 90 Tab 3 02/11/2019 Active Oral BY MOUTH ONCE TabIndications: DAILY Diabetes mellitus without complication (HCC) clopidogrel Take 1 Tab by 90 Tab 3 02/11/2019 Active (PLAVIX) 75 MG mouth DAILY. Oral Tab Losartan-Hydrochlo Take 1 Tab by 90 Tab 3 02/11/2019 Active rothiazide 50-12.5 mouth DAILY. MG Oral TabIndications: Benign hypertension atorvastatin TAKE 1 TABLET 90 Tab 3 06/17/2019 Active (LIPITOR) 40 MG BY MOUTH ONCE Oral Tab DAILY ibuprofen (MOTRIN) TAKE 1 TABLET 90 Tab 3 07/10/2019 Active 800 MG Oral Tab BY MOUTH EVERY 8 HOURS NEEDED FOR HEADACHE metFORMIN HCL 1000 TAKE 1 TABLET 180 Tab 3 10/07/2019 Active MG Oral Tab BY MOUTH TWICE A DAY WITH MEALS Phentermine HCl Take 1 Cap by 30 Cap 5 10/09/2019 Active 37.5 MG Oral mouth EVERY CapIndications: MORNING. Max BMI 40.0-44.9, Daily Amount: adult (HCC) 37.5 mg. gabapentin Take 1 Cap by 180 Cap 3 10/09/2019 Active (NEURONTIN) 300 MG mouth TWICE Oral Cap DAILY. gabapentin Take 1 Cap by 180 Cap 3 04/02/2019 Discontinued (NEURONTIN) 300 MG mouth THREE 0 (Dose Oral TIMES DAILY. Adjustment) CapIndications: Herpes zoster Phentermine HCl TAKE 1 CAPSULE 30 Cap 3 06/25/2019 Discontinued 37.5 MG Oral BY MOUTH 0 (Reorder) CapIndications: DAILY. MAX BMI 40.0-44.9, DAILY AMOUNT: adult (HCC) 37.5 MG documented as of this encounter (statuses as of 10/09/2019) Active Problems Problem Noted Date BMI 40.0-44.9, adult 10/09/2019 History of TIA (transient ischemic attack) 05/28/2019 Essential hypertension 02/15/2018 Cortical cataract of both eyes 03/01/2017 Complete tear of right rotator cuff 01/13/2017 Rotator cuff tear arthropathy of right shoulder 11/25/2016 BMI 37.0-37.9, adult 09/20/2012 Overview: This patient's BMI has been calculated and is above average, and BMI management plan is completed. General patient education discussion including: weight loss link to reduction of risk factors for car diac and other diseases Referral to professor of legal studies. Uncontrolled type 2 diabetes mellitus with peripheral neuropathy 10/10/2011 Overview: Eye exam done 05/13, no problems noted Hearing loss, sensory 08/14/2009 documented as of this encounter (statuses as of 10/09/2019) Resolved Problems Problem Noted Date Resolved Date Infected wound 01/30/2019 02/05/2019 Right shoulder pain 11/17/2016 10/30/2018 Tear of right rotator cuff 11/17/2016 02/05/2019 Neck abscess 01/15/2015 10/30/2018 Urine test positive for microalbuminuria 12/09/2013 10/30/2018 Overview: On losartan. Intolerant to lisinopril. Other specified hypothyroidism 08/09/2004 09/10/2019 Depression 08/09/2004 10/30/2018 documented as of this encounter (statuses as of 10/09/2019) Immunizations Name Administration Dates Next Due Influenza [...] Assigned at Date Recorded Not on file documented as of this encounter Last Filed Vital Signs Vital Sign Reading Time Taken Comments Blood Pressure 118/70 10/09/2019 9:13 AM EDT Pulse 74 10/09/2019 9:13 AM EDT Temperature - - Respiratory Rate - - Oxygen Saturation - - Inhaled Oxygen Concentration - - Weight 122.5 kg (270 lb) 10/09/2019 9:13 AM EDT Height 180.3 cm (5' 11") 10/09/2019 9:13 AM EDT Body Mass Index 37.66 10/09/2019 9:13 AM EDT documented in this encounter Patient Instructions Patient InstructionsCharlie Kwan MD - 10/09/2019 9:00 AM EDTcontinue current medications Look at your feet every day You have lost 30 lb Congratulations! Next goal weight is 260 lb Diabetes mellitus is not under great control but it will get better with weight Diabetes mellitus blood 3 month and then follow up me 3.5 month documented in this encounter Progress Notes Charlie Kwan MD - 10/09/2019 9:00 AM EDT PATIENT: Shant SCOTT Sr. : 1955 DATE OF SERVICE: 10/09/2019 CHIEF COMPLAINT: Chief Complaint Patient presents with ? Diabetes Follow up. Patient states his blood sugars are all over the place. Last A1C was 8.7 on 09/10/2019. Subjective HISTORY OF PRESENT ILLNESS: Shant SCOTT Sr. is a 63-y.o. male. 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 Hearing loss, sensory ? Uncontrolled type 2 diabetes mellitus with peripheral neuropathy (HCC) ? BMI 37.0-37.9, adult ? Rotator cuff tear arthropathy of right shoulder ? Complete tear of right rotator cuff ? Cortical cataract of both eyes ? Essential hypertension ? History of TIA (transient ischemic attack) ? BMI 40.0-44.9, adult ([facility]) Family History Problem Relation Age of Onset ? Diabetes Paternal Aunt ? Glaucoma No family history ? Blindness No family history ? Macular Degeneration No family history ? Other Eye Problems No family history Current Outpatient Medications Medication Sig ? atorvastatin (LIPITOR) 40 MG Oral Tab TAKE 1 TABLET BY MOUTH ONCE DAILY ? Blood Glucose Monitoring Suppl (BLOOD GLUCOSE METER) Does not apply Kit by Does not apply route. 1. Brand: Any 2. Dx:250.02 3. non-Insulin dependent 4. Test Blood Glucose 2 time(s) A DAY ? Blood Glucose Monitoring Suppl (BLOOD GLUCOSE TEST STRIPS STRP) 1. Brand : per meter type 2. Dx:250.02 3. non-Insulin dependent 4. Test Blood Glucose 2 time(s) A DAY ? clopidogrel (PLAVIX) 75 MG Oral Tab Take 1 Tab by mouth DAILY. ? Empagliflozin (JARDIANCE) 25 MG Oral Tab Take 1 Tab by mouth DAILY. ? gabapentin (NEURONTIN) 300 MG Oral Cap Take 1 Cap by mouth TWICE DAILY. ? ibuprofen (MOTRIN) 800 MG Oral Tab TAKE 1 TABLET BY MOUTH EVERY 8 HOURS NEEDED FOR HEADACHE ? JANUVIA 100 MG Oral Tab TAKE 1 TABLET BY MOUTH ONCE DAILY ? Lancets Does not apply Misc by Does not apply route. 1. Brand: per meter type 2. Dx:250.02 3. non-Insulin dependent 4. Test Blood Glucose 2 time(s) A DAY ? Losartan-Hydrochlorothiazide 50-12.5 MG Oral Tab Take 1 Tab by mouth DAILY. ? metFORMIN HCL 1000 MG Oral Tab TAKE 1 TABLET BY MOUTH TWICE A DAY WITH MEALS ? Phentermine HCl 37.5 MG Oral Cap Take 1 Cap by mouth EVERY MORNING. Max Daily Amount: 37.5 mg. No current facility-administered medications for this visit. Allergies Allergen Reactions ? Lisinopril Other cough Social History Socioeconomic History ? Marital status: Spouse name: Not on file ? Number of children: Not on file ? Years of education: Not on file ? Highest education level: Not on file Occupational History ? Not on file Social Needs ? Financial resource strain: Not on file ? Food insecurity Worry: Not on file Inability: Not on file ? Transportation needs Medical: Not on file Non-medical: Not on file Tobacco Use ? Smoking status: Never Smoker ? Smokeless tobacco: Current User Types: Chew Substance and Sexual Activity ? Alcohol use: No Alcohol/week: 0.0 standard drinks ? Drug use: No ? Sexual activity: Not on file Lifestyle ? Physical activity Days per week: Not on file Minutes per session: Not on file ? Stress: Not on file Relationships ? Social connections Talks on phone: Not on file Gets together: Not on file Attends moravian service: Not on file Active member of club or organization: Not on file Attends meetings of clubs or organizations: Not on file Relationship status: Not on file ? Intimate partner violence Fear of current or ex partner: Not on file Emotionally abused: Not on file Physically abused: Not on file Forced sexual activity: Not on file Other Topics Concern ? Not on file Social History Narrative ? Not on file ROS no gastro-intestinal symptoms no genito-urinary symptoms Objective PHYSICAL EXAM: VITALS: BP 118/70 | Pulse 74 | Ht 5' 11" (1.803 m) | Wt 270 lb (122.5 kg) | BMI 37.66 kg/mBody mass index is 37.66 kg/m. Physical Exam S1 and S2 normal, no murmurs, clicks, gallops or rubs. Regular rate and rhythm. Chest is clear; nowheezes or rales. No edema or JVD. Left foot diabetic exam: Visual exam. Foot [...] at either the foot or ankle: yes ASSESSMENT / IMPRESSION: ICD-9-CM ICD-10-CM 1. Essential hypertension at goal continue current medications 401.9 I10 2. BMI 40.0-44.9, adult (HCC) continue phentermine next goal weight 260 lb V85.41 Z68.41 Phentermine HCl 37.5 MG Oral Cap 3. Uncontrolled type 2 diabetes mellitus with peripheral neuropathy (HCC) continue current medications goal hemoglobin A1C 7% repeat 3 months Look at feet daily 250.62 E11.42 357.2 E11.65 Patient Instructions continue current medications Look at your feet every day You have lost 30 lb Congratulations! Next goal weight is 260 lb Diabetes mellitus is not under great control but it will get better with weight Diabetes mellitus blood 3 month and then follow up me 3.5 month Charlie Kwan MD 10/09/2019 09:33 documented in this encounter Plan of Treatment Date Type Specialty Care Team Description 12/11/2019 Lab Internal Medicine 12/18/2019 Office Visit Internal Medicine Charlie Kwan MD [address] [place] [address] [phone] 03/12/2020 Ocular Visit Optometry Ashkan Moctezuma, OD [address] [facility] [place] [address] Health Maintenance Due Date Last Done Comments CT Colonography 1955 FIT-DNA 1955 FIT/FOBT 1955 Sigmoidoscopy 1955 ZOSTER IMMUNIZATION SERIES 10/20/2007 (1 of 2) FOOT EXAM 02/15/2019 02/15/2018, 02/15/2018, 11/15/2016 HEMOGLOBIN A1C 12/09/2019 09/10/2019, 05/28/2019, 01/29/2019, Additional history exists DEPRESSION SCREENING 01/03/2020 01/02/2019, 01/02/2019 LIPID DISORDER SCREENING 09/10/2020 09/10/2019, 08/30/2019, 06/17/2019, Additional history exists Diabetic Eye Exam 03/07/2021 03/07/2019, 03/07/2019, 03/07/2019, Additional history exists Colonoscopy 04/20/2023 04/20/2018, 04/20/2018, 04/25/2014, Additional history exists Colonoscopy 04/20/2023 04/20/2018, 04/20/2018, 04/25/2014, Additional history exists Colorectal Cancer Screening 04/20/2023 DTaP/Tdap/Td Vaccines (2 - 07/17/2024 07/17/2014 Tdap) [...] Type Problems Progress Blood Pressure Blood Pressure 118/70 No Mariama, < 140/90 (10/09/2019 ANITA Ramesh 9:13 AM EDT) Note: This is an individualized treatment (blood pressure) goal for Shant SCOTT Sr.: Displayed above (on the left) is your goal for blood pressure control. Your most recent blood pressure is also shown above, on the right. You should try to achieve blood pressures that are lower than your goal listed above (on the left). Depression screen Depression 0 (01/02/2019 11:24 AM Domitila Brice FNP (PHQ-9) total score < 5 EDT) Note: This is an individualized treatment (depression) goal for Shant Scott Sr.: Displayed above is your goal for a depression screening (PHQ-9) score that would indicate good control of your depression. Diabetes < 7.0 Diabetes Uncontrolled type 2 8.7 (09/10/2019 Domitila Brice, diabetes mellitus 3:17 PM EST) GREEN [employer] OFFBEARER with peripheral neuropathy Note: Diabetes Care Plan According to current [...] my blood sugar results (including dextrose sticks). [facility] is safe and secure way for you [...] provider and work towards quitting. Education Resources: [place] Diabetic Association Site http://diabetes.org Academy of Nutrition & Dietetics Site http://eatright.org National Smoking Cessation Site http://smokefree.gov Glycohemoglobin A1c < 7.0 Diabetes 8.7 (09/10/2019 3:17 No Domitila Leslie FNP PM EST) Note: This is an individualized treatment (diabetes control, HgbA1C) goal for Shant Scott Sr.: Displayed above is your progress towards your HgbA1C goal. Your goal is shown above (on the left); your most recent HgbA1C is shown on the right. Note that lower numbers are better. Weight loss vs. 18 mo Lifestyle 32 (10/09/2019 9:13 AM No Domitila Leslie FNP max (lbs) >= 10 EDT) Note: This is an individualized lifestyle goal [...] of this encounter Implants Implanted Type Area Rfid Analyst Device Shelf Model / Identifier Expiration Serial / Date Lot Ventralex Patch -Med 6.4x6.4 - [id number] [facility] XanicKATRIN, CHELSI. [id number] / Implanted: Qty: 1 on 08/16/2010 at [facility] / [id number] 5.5 Biocomposite Corkscrew/Fiber - [id number] Right: ARTHREX 03/30/2019 [id number] / Implanted: Qty: 1 on 08/15/2017 by Juan Carlos Mulligan MD at [facility] Shoulder / [id number] Swivel Lock [place] 4.75 - [id number] Right: ARTHREX 03/30/2019 AR- [id number] / Implanted: Qty: 2 on 08/15/2017 by Juan Carlos Mulligan MD at [facility] Shoulder / [id number] documented as of this encounter Results Not on filedocumented in this encounter Visit Diagnoses Diagnosis Essential hypertension Unspecified essential hypertension BMI 40.0-44.9, adult (HCC) Body Mass Index 40.0-44.9, adult Uncontrolled type 2 diabetes mellitus with peripheral neuropathy (HCC) documented in this encounter Insurance Payer Benefit Plan / Subscriber ID Effective Dates Phone Address Type Group JUSTINEUS SHAYANBS CHARLY DOWNEYBS [id number] 2017-Present [employer] Guarantor Name Account Type Relation to Date of Phone Billing Patient Address Jerome SCOTT Personal/Family 1955 [address] [phone] [place], [place] ([place]) [phone] documented as of this encounter
[2019-10-11 20:36] VITALS: BP 123/78
[2019-10-11] MEDS ORDERED: Tetan/Diph/Pertus SYR(Tdap)* 0.5 ML SYR(BOOSTRIX) use SYR contains LATEX IM ONE (21:16)
[2019-10-11] MEDS ORDERED: Amoxicillin/Clavulanate TAB* 875 MG PO ONE (21:17)
--- NOTE | 2019-10-11 21:58 | UC ---
Hand/Wrist HPI - HPI Summary HPI Summary: left hand dorsal surface 4 cm laceration about 3 mm deep gaps 4 mm but pulls together well---occurred yesterday when he hit his hand on a convex grinder operator---erythema without streaking and purulent drainage - History Of Current Complaint Chief Complaint: UCWounds Stated Complaint: HAND INJURY Time Seen by Provider: 10/11/19 21:11 Hx Obtained From: Patient Mechanism Of Injury: hand hit by a convex grinder operator Onset/Duration: Sudden Onset, Lasting Days - 1, Still Present Pain Intensity: 9 Pain Scale Used: 0-10 Numeric Alleviating Factor(s): Nothing Associated Signs And Symptoms: Positive: Swelling, Redness Related History: Dominant Hand Right - Allergies/Home Medications Allergies/Adverse Reactions: Allergies Allergy/AdvReac Type Severity Reaction Status Date / Time No Known Allergies Allergy Verified 10/11/19 20:35 Home Medications: Home Medications Atorvastatin* [Lipitor 40 MG*] 40 mg PO DAILY 03/21/17 [History Confirmed ] Metformin HCl [Fortamet] 1,000 mg PO BID 03/21/17 [History Confirmed 10/11/19] Sitagliptin Phosphate [Januvia] 100 mg PO DAILY 03/21/17 [History Confirmed ] glipiZIDE TAB.XL* [Glucotrol Xl*] 10 mg PO DAILY 03/21/17 [History Confirmed ] Empagliflozin [Jardiance] 10 mg PO DAILY WITH MEAL 10/22/18 [History Confirmed 10/11/19] Gabapentin 300 mg PO TID 10/22/18 [History Confirmed 10/11/19] Losartan/Hydrochlorothiazide [Losartan-Hctz 50-12.5 mg Tab] 1 tab PO DAILY 10/22 [History Confirmed 10/11/19] Clopidogrel TAB* [Plavix TAB*] 75 mg PO DAILY #30 tab 10/23/18 [Rx Confirmed ] Amoxicillin/Clavulanate TAB* [Augmentin TAB 875*] 875 mg PO BID #20 tab [Rx] DOXYcycline CAP(*) [DOXYcycline 100MG CAP(*)] 100 mg PO BID #20 cap 10/13/19 [Rx ] PMH/Surg Hx/FS Hx/Imm Hx Previously Healthy: No Endocrine History: Diabetes, Dyslipidemia Cardiovascular History: Hypertension - Surgical History Surgical History: Yes Surgery Procedure, Year, and Place: HERNIA REPAIR. Right shoulder surgery - Family History Known Family History: Positive: Cardiac Disease, Hypertension, Respiratory Disease - COPD - Social History Occupation: Works From/At Home Lives: With Family Alcohol Use: None Substance Use Type: None Smoking Status (MU): Current Some Day Smoker Type: Smokeless Tobacco Amount Used/How Often: 2 can weekly Review of Systems All Other Systems Reviewed And Are Negative: Yes Constitutional: Positive: Negative Skin: Positive: Other - laceration yesterday now red with purulent drainage Eyes: Positive: Negative ENT: Positive: Negative Respiratory: Positive: Negative Cardiovascular: Positive: Negative Gastrointestinal: Positive: Negative Genitourinary: Positive: Negative Motor: Positive: Negative Neurovascular: Positive: Negative Musculoskeletal: Positive: Arthralgia - left hand Neurological/Mental Status: Positive: Negative Psychological: Positive: Negative Is Patient Immunocompromised?: No Physical Exam Triage Information Reviewed: Yes Appearance: Well-Appearing, No Pain Distress, Well-Nourished Vital Signs: Initial Vital Signs Temp 98.4 F 10/11/19 20:31 Pulse 86 10/11/19 20:31 Resp 16 10/11/19 20:31 BP 123/78 10/11/19 20:31 Pulse Ox 98 10/11/19 20:31 Vital Signs Reviewed: Yes Eye Exam: Normal Eyes: Positive: Conjunctiva Clear ENT Exam: Normal ENT: Positive: Normal ENT inspection, Hearing grossly normal. Negative: Nasal congestion, Trismus, Muffled voice, Hoarse voice Dental Exam: Normal Neck exam: Normal Neck: Positive: Supple, Nontender Respiratory Exam: Normal Respiratory: Positive: Chest non-tender, No respiratory distress, No accessory muscle use Cardiovascular Exam: Normal Cardiovascular: Positive: RRR, Pulses Normal, Brisk Capillary Refill Musculoskeletal Exam: Normal Musculoskeletal: Positive: Strength Intact, ROM Intact, Edema @ Neurological Exam: Normal Neurological: Positive: Alert, Muscle Tone Normal Psychological Exam: Normal Skin: Positive: Other - laceratal dorsal surface of left hand over 2nd Procedures - Laceration/Wound Repair 1 Location: Other - dorsum of left hand Description: Linear Length, Depth and Shape: 4 cmx 3mmx4 mm Laceration/Wound Explored: Other - wash and soaked in warm soapy water then cleaned with friction Suture Type: Other - no closed- due to age of wound Layer Closure?: No Sterile Dressing Applied?: No Diagnostics - Radiology No standard instances Radiology Interpretation Completed By: ED Physician - no evidence of fb or fracture Hand/Wrist Course/Dx - Course Course Of Treatment: dressing and davina wrap applied Augmentin started supplies for wound care provided to patient----patient verbalizes understanding of d/c instructions, cleaning a/b and follow up care---tetanus updated about 5-6years ago - Differential Dx/Diagnosis Provider Diagnosis: Laceration of left hand with infection Discharge ED - Sign-Out/Discharge Documenting (check all that apply): Patient Departure All imaging exams completed and their final reports reviewed: No Studies - Discharge Plan Condition: Stable Disposition: HOME Prescriptions: Amoxicillin/Clavulanate TAB* [Augmentin TAB 875*] 875 mg PO BID #20 tab DOXYcycline CAP(*) [DOXYcycline 100MG CAP(*)] 100 mg PO BID #20 cap Patient Education Materials: Wound Infection (ED), Warm Compress or Soak (ED) Referrals: Sim Swenson MD [Medical Doctor] - 3 Days Additional Instructions: 1. Keep dressing clean and dry! Change at least one time daily--- 2. soak with warm soap and water 2-3 times a day 3. follow with orthopedic for recheck this week 4. to emergency department if swelling or redness worsens - Billing Disposition and Condition Condition: STABLE Disposition: Home - Attestation Statements Provider Attestation: This patient was not seen by me. I was available for consult. Chart reviewed. JOAQUIN
--- NOTE | 2019-10-13 19:15 | UC ---
- Progress Note Progress Note: 10/13/2019 Final Wound culture report: positive for MRSA and Staph Aureus. Final sensitivity report still pending. Pt's results discussed w/ DR Hair since Pt is taken Losartan/HCTZ and BActrim can 't be Rx She recommends Doxycycline. Please advised Pt to also take Doxycyclien PO which was sent to pharmacy. Advise to take Culturelle or probiotics to protect her GI system. Troy Garcia PA-C Course/Dx - Diagnoses Provider Diagnoses: Laceration of left hand with infection Discharge ED - Sign-Out/Discharge Documenting (check all that apply): Post-Discharge Follow Up All imaging exams completed and their final reports reviewed: No Studies - Discharge Plan Condition: Stable Disposition: HOME Prescriptions: Amoxicillin/Clavulanate TAB* [Augmentin TAB 875*] 875 mg PO BID #20 tab DOXYcycline CAP(*) [DOXYcycline 100MG CAP(*)] 100 mg PO BID #20 cap Patient Education Materials: Wound Infection (ED), Warm Compress or Soak (ED) Referrals: Sim Swenson MD [Medical Doctor] - 3 Days Additional Instructions: 1. Keep dressing clean and dry! Change at least one time daily--- 2. soak with warm soap and water 2-3 times a day 3. follow with orthopedic for recheck this week 4. to emergency department if swelling or redness worsens - Billing Disposition and Condition Condition: STABLE Disposition: Home
== END 2019-10-11 22:30 | disposition home or self-care (01) ==
LOC: UCEAST 19:21
DX: S61.412A Laceration without foreign body of left hand, initial encounter (principal); Z23 Encounter for immunization; L08.9 Local infection of the skin and subcutaneous tissue, unspecified; E11.9 Type 2 diabetes mellitus without complications; I10 Essential (primary) hypertension; E78.5 Hyperlipidemia, unspecified; F17.290 Nicotine dependence, other tobacco product, uncomplicated; W31.89XA Contact with other specified machinery, initial encounter; Y92.9 Unspecified place or not applicable; Z79.899 Other long term (current) drug therapy; Z79.84 Long term (current) use of oral hypoglycemic drugs
CPT/HCPCS: 87070; 87077; 87186; 87205; 87640; 87641; 90715; 99212; A9270-GY; G0463